=== PATIENT | male | born 1950 | race Two or more races ===

== ENCOUNTER 2016-10-01 11:04 | Emergency (ER) | payer MEDICAID, OTHER ==
[~2016-10-01] VITALS: Ht 167.6 cm; Wt 77.5 kg
[~2016-10-01 11:04] MED LIST: ALBU8.5H3 INH; AMLO-147 PO; CETI10CA PO; GUAI118L94 PO; HYDR12.58 PO; IBUP200C PO; LISI10TA2 PO; MECL25TA2 PO
[2016-10-01 11:46] VITALS: Ht 167.6 cm; Wt 77.5 kg
[2016-10-01] MEDS ORDERED: morphine 4 MG/ML VIAL IV STA (15:35)
[2016-10-01] MEDS ORDERED: ONDANSETRON 4 MG INJ IV STA (15:35)
[2016-10-01] MEDS ORDERED: SOD CHLORIDE 0.9% 1,000 ML IV STA (15:35)
[2016-10-01] MEDS ORDERED: HYD25 PO (15:56)
[2016-10-01] MEDS ORDERED: DEXAMETHASONE 10 MG/ML 1 ML INJ IV ONE (16:00)
[2016-10-01] MEDS ORDERED: CEFTRIAXONE 1 GM/50 ML (PMX) 50 ML IVPB ONE (16:00)
[2016-10-01] MEDS ORDERED: ACYCLOVIR 1,000 MG in SOD CHLORIDE 0.9% 100 ML IVPB ONE (16:00)
[2016-10-01] MEDS ORDERED: CIPROFLOXACIN 0.3% 2.5 ML OPH LEFT EYE ONE (16:00)
[2016-10-01] MEDS ORDERED: MUPIROCIN 2% 22 GM OINT TOP ONE (16:00)
[2016-10-01 16:19] LABS: ADD SCAN DIFF NO
[2016-10-01 16:22] LABS: BASOPHILS % 0.7 % (0.0-2.0); EOSINOPHILS % 0.4 % (0.0-7.0); HEMATOCRIT 53.4 % (42.0-52.0); HEMOGLOBIN 18.8 g/dl (14.0-18.0); LYMPHOCYTES # 1.4 10^3/ul (0.8-2.9); MEAN CORPUSCULAR HEMOGLOBIN 28.7 pg (29.0-33.0); MEAN CORPUSCULAR HGB CONC 35.2 g/dl (32.0-37.0); MEAN CORPUSCULAR VOLUME 81.4 fl (82.0-101.0); MEAN PLATELET VOLUME 8.8 fl (7.4-10.4); MONOCYTE # 0.6 10^3/ul (0.3-0.9); NEUTROPHIL # 2.5 10^3/ul (1.6-7.5); PLATELET COUNT 154 10^3/UL (140-415); RED BLOOD COUNT 6.56 10^6/ul (4.70-6.10); RED CELL DISTRIBUTION WIDTH 12.7 % (11.5-14.5); WHITE BLOOD COUNT 4.6 10^3/ul (4.8-10.8)
--- NOTE | 2016-10-01 16:25 | RADRPT ---
PROCEDURE: CT Brain without contrast. CLINICAL INDICATION: herpes ophthalmicus TECHNIQUE: A CT of the brain was performed utilizing axial imaging from the skull base through the vertex without IV contrast. Multiplanar reformatted images were made. Images were reviewed on a [email or web address] workstation. The CTDIvol is 45 mGy and the DLP is 720 mGycm. COMPARISON: None FINDINGS: There is no discrete extra-axial fluid collection or mass. The ventricles are of normal size, conto ur and configuration. There is minimal periventricular white matter disease in the left frontal and parietal lobes. There is no associated mass effect. No other intra-axial masses or regions of abn ormal attenuation are seen. There is no intracranial hemorrhage. Noted is left frontal and pre septal periorbital soft tissue swelling. There is normal aeration of the visualized paranasal sinuses. IMPRESSION: Mild white matter disease compatible with chronic small vessel ischemia. No intracranial hemorrhage , mass or infarct. Left frontal and pre septal periorbital soft tissue swelling. .Kb Norman MD, MD Date Time Electronically viewed and signed by .Kb Norman MD, MD on 10/01/2016 16:24 .A/
[2016-10-01 16:36] LABS: ADD UMIC YES; URINE BILIRUBIN (Dip) NEGATIVE (NEGATIVE); URINE BLOOD (Dip) TRACE (NEGATIVE); URINE COLOR LT. YELLOW (YELLOW); URINE GLUCOSE (Dip) NEGATIVE (NEGATIVE); URINE KETONES (Dip) NEGATIVE (NEGATIVE); URINE LEUKOCYTE ESTERASE (Dip) NEGATIVE (NEGATIVE); URINE NITRITE (Dip) NEGATIVE (NEGATIVE); URINE TOTAL PROTEIN (Dip) TRACE (NEGATIVE); URINE UROBILINOGEN (Dip) 0.2 E.U./dL (0.1-1.0)
--- NOTE | 2016-10-01 16:38 | ERA ---
ER Documentation Chief Complaint Date/Time DATE: 10/01/16 TIME: 16:35 Chief Complaint LT EYE PAIN AND UNILATERAL RASH SINCE SUNDAY HPI 66-year-old man presents with worsening rash to the left side of the face fluting his forehead and eyelids. He was seen and evaluated at [facility] about 3 days ago and states at that time the eyelids were not involved , he was evaluated and discharged with a prescription for valacyclovir which he states he has been using as prescribed. Since then the rash extended over to his left eyelids and has close his eyes shut. He developed a fever today. He has had no cough, no headache or neck stiffness, no chest pain or shortness of breath. Patient denies diabetes. Patient denies hearing loss or discharge from his ears. ROS All systems reviewed and are negative except as per history of present illness. Medications Home Meds Reported Medications Hydrochlorothiazide* (Hydrochlorothiazide*) 25 Mg Tab, 25 MG PO DAILY, #30 TAB 10/01/16 Discontinued Reported Medications Ibuprofen* (Ibuprofen*) Unknown Strength Capsule, PO QID Y for PAIN, CAP 08/18/15 Amlodipine Besylate* (Amlodipine Besylate*) Unknown Strength Tablet, PO DAILY, # 30 TAB 08/18/15 Discontinued Scripts Hydrochlorothiazide* (Hydrochlorothiazide*) 12.5 Mg Tablet, 12.5 MG PO DAILY, # 30 TAB Prov:DAMIAN FRAGOSO. TELE TECH 08/22/15 Lisinopril* (Lisinopril*) 10 Mg Tablet, 10 MG PO DAILY, #30 TAB Prov:DAMIAN FRAGOSO. TELE TECH 08/22/15 Meclizine Hcl* (Antivert*) 25 Mg Tablet, 25 MG PO Q6H Y for dizzy, #5 TAB Prov:DAMIAN FRAGOSO. TELE TECH 08/22/15 Cetirizine Hcl* (Zyrtec*) 10 Mg Capsule, 10 MG PO DAILY, #30 TAB Prov:GABRIEL FOSTER TELE TECH 08/19/15 Guaifenesin-Codeine Phosphate* (Guaifenesin* with Codeine Liq) 120 Ml Liquid, 5 ML PO Q4H for COUGH, #60 ML Prov:GABRIEL FOSTER TELE TECH 08/19/15 Albuterol Sulfate* (Proair HFA*) 8.5 Gm Hfa.aer.ad, 2 PUFF INH Q4H Y for WHEEZING AND SOB, #1 INHALER Prov:GABRIEL FOSTER NP 08/19/15 Allergies Allergies: Coded Allergies: No Known Allergy (Unverified , 10/01/16) PMhx/Soc Hypertension History of Surgery: No Anesthesia Reaction: No Hx Neurological Disorder: No Hx Respiratory Disorders: No Hx Cardiac Disorders: Yes (HTN) Hx Psychiatric Problems: No Hx Miscellaneous Medical Probl: No Hx Alcohol Use: No Hx Substance Use: No Hx Tobacco Use: No Smoking Status: Never smoker FmHx Family History: coronary disease, No diabetes Physical Exam Vitals Vital Signs Date Time Temp Pulse Resp B/P Pulse Ox O2 Delivery O2 Flow Rate FiO2 10/01/16 18:30 90 20 160/82 98 Room Air 10/01/16 11:46 100.3 88 20 201/91 98 Physical Exam GENERAL: Well-developed, well-nourished, febrile HEENT: Moist mucous membranes, diffuse papulovesicular rash to the left side of the upper face including the forehead and upper and lower left eyelids with skin induration and erythema. No cervical spine tenderness or deformity, no jaundice or icterus. Left eyelids are closed shut and I was unable to appreciate the cornea or pupil although the portion of the conjunctiva that I did visualized was injected and positive for chemosis. There is skin erythema and rash extending to the nose, although sparing the tip of the nose. There was no skin induration or erythema to the left EAC and tympanic membrane was without bulging or erythema. NEURO: Alert and oriented 3, able to speak and swallow without difficulty, sensation intact distally Strength 5/5 in upper and lower extremities bilaterally CARDIAC: Regular rate and rhythm, no murmurs rubs or gallops LUNGS: Clear bilaterally no wheezing crackles or stridor ABDOMEN: Soft nontender, no guarding, no rigidity, no rebound, no psoas sign no obturator sign. Normoactive bowel sounds SKIN: Warm and dry to touch, extensive erythematous papulovesicular rash to the left upper face involving first of vision of cranial nerve V, no oral lesions, no rash or erythema to the left auricle or within the left EAC EXTREMITIES: No clubbing cyanosis or edema, calves are bilaterally symmetrical, no Homans sign, no popliteal cord sign. Distal pulses equal and bilateral PSYCH: Normal affect without agitation or irritability Result Diagram: 10/01/16 1540 10/01/16 1540 Results 24 hrs Laboratory Tests Test 10/01/16 15:40 10/01/16 15:56 White Blood Count 4.610^3/ul Red Blood Count 6.5610^6/ul Hemoglobin 18.8g/dl Hematocrit 53.4% Mean Corpuscular Volume 81.4fl Mean Corpuscular Hemoglobin 28.7pg Mean Corpuscular Hemoglobin Concent 35.2g/dl Red Cell Distribution Width 12.7% Platelet Count 64594^3/UL Mean Platelet Volume 8.8fl Neutrophils % 54.0% Lymphocytes % 31.0% Monocytes % 13.0% Eosinophils % 0.4% Basophils % 0.7% Nucleated Red Blood Cells % 0.0/100WBC Neutrophils # 2.510^3/ul Lymphocytes # 1.410^3/ul Monocytes # 0.610^3/ul Eosinophils # 0.010^3/ul Basophils # 0.010^3/ul Nucleated Red Blood Cells # 0.010^3/ul Sodium Level 136mmol/L Potassium Level 3.8mmol/L Chloride Level 93mmol/L Carbon Dioxide Level 28mmol/L Anion Gap 19 Blood Urea Nitrogen 21mg/dl Creatinine 1.07mg/dl Glucose Level 137mg/dl Lactic Acid Level 2.3mmol/L Calcium Level 9.3mg/dl Total Bilirubin 1.1mg/dl Direct Bilirubin 0.00mg/dl Indirect Bilirubin 1.1mg/dl Aspartate Amino Transf (AST/SGOT) 37IU/L Alanine Aminotransferase (ALT/SGPT) 39IU/L Alkaline Phosphatase 76IU/L Total Protein 8.3g/dl Albumin 4.6g/dl Globulin 3.70g/dl Albumin/Globulin Ratio 1.24 Lipase 130U/L Urine Color LT. YELLOW Urine Clarity CLEAR Urine pH 6.0 Urine Specific [place] 1.020 Urine Ketones NEGATIVE Urine Nitrite NEGATIVE Urine Bilirubin NEGATIVE Urine Urobilinogen 0.2 E.U./dL Urine Leukocyte Esterase NEGATIVE Urine Microscopic RBC 0-2/HPF Urine Microscopic WBC 0-2/HPF Urine Bacteria OCCASIONAL Urine Hemoglobin TRACE Urine Glucose NEGATIVE% Urine Total Protein TRACE Current Medications Medications (Trade) Dose Ordered Sig/Fadumo Route PRN Reason Start Time Stop Time Status Last Admin Dose Admin Sodium Chloride (NS) 1,000 ml @ 1,000 mls/hr Q1H STAT IV 10/01/16 15:35 10/01/16 16:34 DC 10/01/16 16:07 Morphine Sulfate (morphine) 4 mg ONCE STAT IV 10/01/16 15:35 10/01/16 15:47 DC 10/01/16 16:06 Ondansetron HCl (Zofran Inj) 4 mg ONCE STAT IV 10/01/16 15:35 10/01/16 15:47 DC 10/01/16 16:06 Mupirocin 1 applic 1 applic ONCE ONCE TOP 10/01/16 16:00 10/01/16 16:01 DC 10/01/16 16:55 Ceftriaxone Sodium 50 ml @ 100 mls/hr ONCE ONCE IVPB 10/01/16 16:00 10/01/16 16:29 DC 10/01/16 16:07 Acyclovir/Sodium Chloride (Zovirax/NS) 100 ml @ 250 mls/hr ONCE ONCE IVPB 10/01/16 16:00 10/01/16 16:23 DC 10/01/16 16:55 Dexamethasone (Decadron) 10 mg ONCE ONCE IV 10/01/16 16:00 10/01/16 16:01 DC 10/01/16 16:06 Ciprofloxacin HCl 2 drop 2 drop ONCE ONCE LEFT EYE 10/01/16 16:00 10/01/16 16:01 DC 10/01/16 16:55 Vancomycin HCl (Vancocin) 250 ml @ 125 mls/hr ONCE IVPB 10/01/16 17:00 10/01/16 18:22 DC 10/01/16 17:37 Procedures/MDM IV line was established patient was placed on rn cardiac rehab rhythm strip revealed a sinus rhythm at about 80 bpm with upright P and T waves. Patient was febrile. Blood cultures were ordered results are pending I will follow-up. I do suspect bacterial superinfection of the skin of the left face which is secondary to herpes zoster outbreak to first division of the trigeminal nerve on the left face. I treated him here with 2 L normal saline intravenously, ibuprofen 600 mg p.o., dexamethasone 10 mg IV, ceftriaxone 1 g IV, and acyclovir 1 g IV. Patient also received morphine 4 mg IV and Zofran 4 mg IV for discomfort. Mupirocin antibiotic ointment was applied to the lesions of the left side of the face, and ciprofloxacin ophthalmic solution was administered to the left conjunctiva. I also administered vancomycin 1 g IV CBC revealed leukopenia 4.6 and polycythemia with a hemoglobin of 19, electrolytes revealed dehydration with a BUN/creatinine of 21/1, liver function tests were normal, lactic acid was elevated at 2.3. Chest X-ray 1V Interpreted by me: Soft Tissue: No acute abnormalities Bones: No acute abnormalities Mediastinum/Cardiac Silhouette/Lungs: No acute abnormalities CT scan of the brain was performed that was negative for acute bleed mass or shift, there was evidence of acute left preseptal cellulitis. Please refer to radiologist dictation for full report. Patient's tachycardia improved, pain improved and he has been treated here with IV antiviral and antibiotic therapy. Acute herpes zoster ophthalmicus can cause severe conjunctivitis and keratitis which is what I suspect this patient has and therefore he has at risk of losing his vision. I immediately set up transfer to a facility with active ophthalmology, and after speaking to transfer team he was accepted at [facility]. Critical Care: Time: 32 minutes, this was time separate from other procedures. Treatments/Evaluations: Close monitoring and treatment of unstable vital signs, cardiorespiratory, and neurologic status, while maintaining tight balance of fluid, respiratory, and cardiac interventions. Departure Diagnosis: Primary Impression: Herpes zoster ophthalmicus Additional Impressions: Preseptal cellulitis of left eye Facial cellulitis Shingles Qualified Code: B02.33 - Herpes zoster keratitis Condition: [place] Beck MD Oct 01, 2016 16:37
[2016-10-01 16:42] LABS: ALBUMIN 4.6 g/dl (3.3-4.9); POTASSIUM 3.8 mmol/L (3.5-5.1)
[2016-10-01 16:44] LABS: CREATININE 1.07 mg/dl (0.61-1.24)
[2016-10-01 16:45] LABS: ALBUMIN/GLOBULIN RATIO 1.24; BILIRUBIN,INDIRECT 1.1 mg/dl (0-1.1); BILIRUBIN,TOTAL 1.1 mg/dl (0.2-1.3); CALCIUM 9.3 mg/dl (8.4-10.2); TOTAL PROTEIN 8.3 g/dl (6.1-8.1)
[2016-10-01] MEDS ORDERED: VANCOMYCIN 1 GM (PMX) 250 ML IVPB SCH (17:00)
[2016-10-01 17:06] LABS: BACTERIA,URINE OCCASIONAL; URINE RBCS 0-2 /HPF (0)
--- NOTE | 2016-10-01 17:07 | RADRPT ---
PROCEDURE: XR Chest. CLINICAL INDICATION: Abdominal Pain TECHNIQUE: PA and Lateral views of the chest were obtained. COMPARISON: Chest x-ray 08/18/2015. FINDINGS: The soft tissues are normal. There are osteophytes in the thoracic spine. The heart, cardiomediast inal silhouette and hilar structures are normal. The pulmonary vasculature is normal. There are vasc ular calcifications in the aortic arch. The lungs are clear. The costophrenic angles are normal. Th ere is no evidence of pneumoperitoneum. Right apical pleural scarring is noted. IMPRESSION: 1. Spondylosis of the thoracic spine. 2. Stable chest x-ray with no evidence of active cardiopulmonary disease. RPTAT:AAJJ Physician Priya Date Time Electronically viewed and signed by Physician Priya on 10/01/2016 17:07 /
[2016-10-01 18:30] VITALS: BP 160/82; PULSE 90; RESP 20
[2016-10-03 22:54] LABS: VARICELLA-ZOSTER VIRUS AB IgM 0.24
[2016-10-04 10:33] LABS: HERPES SIMPLEX 1 DNA NOT DETECTED; HERPES SIMPLEX 2 DNA NOT DETECTED; HERPES SIMPLEX PCR SOURCE SERUM
[2016-10-04 23:29] LABS: VARICELLA-ZOSTER VIRUS AB IgG >4000.00 INDEX (<= 0.90)
== END 2016-10-01 18:30 | disposition short-term general hospital (02) ==
LOC: E/R 11:04
DX: B02.30 Zoster ocular disease, unspecified (principal); L03.211 Cellulitis of face; B02.33 Zoster keratitis; I10 Essential (primary) hypertension; R40.2252 Coma scale, best verbal response, oriented, at arrival to emergency department; R40.2142 Coma scale, eyes open, spontaneous, at arrival to emergency department; L03.213 Periorbital cellulitis; R40.2362 Coma scale, best motor response, obeys commands, at arrival to emergency department
CPT/HCPCS: 36415; 70450; 71010; 80053; 81001; 83605; 83690; 85025; 86694; 87040; 87529; 96374; 96375; J0133; J0696; J1100; J2270; J2405; J3370; J7030; Z7502; Z7610; 81003

== ENCOUNTER 2016-10-06 17:45 | Emergency (ER) | payer MEDICAID ==
[~2016-10-06] VITALS: Ht 157.5 cm; Wt 78.9 kg
[~2016-10-06 17:45] MED LIST changes: -ALBU8.5H3 INH; -AMLO-147 PO; -CETI10CA PO; -GUAI118L94 PO; +HYD25 PO; -HYDR12.58 PO; -IBUP200C PO; -LISI10TA2 PO; -MECL25TA2 PO
[2016-10-06 17:49] VITALS: Ht 157.5 cm; Wt 78.9 kg
[2016-10-06] MEDS ORDERED: ONDANSETRON (ODT) 4 MG TAB ODT STA (20:52)
[2016-10-06] MEDS ORDERED: HYDR-902 PO (20:54)
[2016-10-06] MEDS ORDERED: HYDROCODONE/APAP (10/325) TAB PO ONE (21:00)
[2016-10-06] MEDS ORDERED: BACI3.5O19 BOTH EYES (21:01)
[2016-10-06] MEDS ORDERED: PRD1OP5 BOTH EYES (21:02)
[2016-10-06] MEDS ORDERED: ACET-141 PO (21:03)
[2016-10-06] MEDS ORDERED: AMLO-147 PO (21:03)
[2016-10-06] MEDS ORDERED: CEPH500C PO (21:04)
[2016-10-06] MEDS ORDERED: ACYC800T57 PO (21:20)
[2016-10-06 21:36] VITALS: BP 155/84; PULSE 74; RESP 20
--- NOTE | 2016-10-06 22:07 | ERD ---
ER Documentation Chief Complaint Date/Time DATE: 10/06/16 TIME: 22:04 Chief Complaint has shingels on scalp thru left eye , has pain HPI Patient is a 66-year-old male with hypertension who presents with pain to the left base and left eye. He has herpes ophthalmicus and was seen at [facility] on September 28 and in the emergency department at [facility] on October 01. On the visit to [facility] he was transferred to [facility] for ophthalmology consultation. He was only given Tylenol for pain. He was supposedly given valacyclovir but the patient does not have that prescription here with him at this time and says "these are all my prescriptions". Currently he only has Keflex and Tylenol. Upon review of old medical records this the patient's fourth visit to the ER since 2015. He said that he does not have a primary doctor and he does not currently have the eye doctor either other than the fact that he saw the [facility] clinic a few days ago. ROS All systems reviewed and are negative except as per history of present illness. Medications Home Meds Active Scripts Acyclovir* (Zovirax*) 800 Mg Tablet, 800 MG PO 5 TIMES DAILY for 7 Days, TAB Prov:HÉCTOR FAYE MD 10/06/16 Hydrocodone/Acetaminophen ([place] 10-325 Tablet) 1 Each Tablet, 1 TAB PO Q6H Y for PAIN, #20 TAB Prov:HÉCTOR FAYE MD 10/06/16 Reported Medications Cephalexin* (Cephalexin*) 500 Mg Capsule, 500 MG PO Q6, #28 CAP 10/06/16 Acetaminophen* (Acetaminophen*) 500 MG Extra Strength Tablet, 500 MG PO Q4H Y for PAIN AND OR ELEVATED TEMP, TAB 10/06/16 Amlodipine Besylate* (Amlodipine Besylate*) 10 Mg Tablet, 10 MG PO DAILY, #30 TAB 10/06/16 Prednisolone Acetate* (Pred Forte*) 5 Ml Susp, 1 DROP BOTH EYES QID Y for Q7D, EA 10/06/16 Bacitracin-Polymyxin* (Bacitracin-Polymyxin* Eye Oint) 3.5 Gm Oint..gm., 1 APPLIC BOTH EYES Q7DAYS, TUB 10/06/16 Discontinued Reported Medications Hydrochlorothiazide* (Hydrochlorothiazide*) 25 Mg Tab, 25 MG PO DAILY, #30 TAB 10/01/16 Ibuprofen* (Ibuprofen*) Unknown Strength Capsule, PO QID Y for PAIN, CAP 08/18/15 Amlodipine Besylate* (Amlodipine Besylate*) Unknown Strength Tablet, PO DAILY, # 30 TAB 08/18/15 Discontinued Scripts Hydrochlorothiazide* (Hydrochlorothiazide*) 12.5 Mg Tablet, 12.5 MG PO DAILY, # 30 TAB Prov:DAMIAN FRAGOSO. HUMAN RESOURCES TALENT MANAGER 08/22/15 Lisinopril* (Lisinopril*) 10 Mg Tablet, 10 MG PO DAILY, #30 TAB Prov:DAMIAN FRAGOSO. HUMAN RESOURCES TALENT MANAGER 08/22/15 Meclizine Hcl* (Antivert*) 25 Mg Tablet, 25 MG PO Q6H Y for dizzy, #5 TAB Prov:DAMIAN FRAGOSO. HUMAN RESOURCES TALENT MANAGER 08/22/15 Cetirizine Hcl* (Zyrtec*) 10 Mg Capsule, 10 MG PO DAILY, #30 TAB Prov:GABRIEL FOSTER HUMAN RESOURCES TALENT MANAGER 08/19/15 Guaifenesin-Codeine Phosphate* (Guaifenesin* with Codeine Liq) 120 Ml Liquid, 5 ML PO Q4H for COUGH, #60 ML Prov:GABRIEL FOSTER HUMAN RESOURCES TALENT MANAGER 08/19/15 Albuterol Sulfate* (Proair HFA*) 8.5 Gm Hfa.aer.ad, 2 PUFF INH Q4H Y for WHEEZING AND SOB, #1 INHALER Prov:GABRIEL FOSTER HUMAN RESOURCES TALENT MANAGER 08/19/15 Allergies Allergies: Coded Allergies: No Known Allergy (Unverified , 10/06/16) PMhx/Soc History of Surgery: No Anesthesia Reaction: No Hx Neurological Disorder: No Hx Respiratory Disorders: No Hx Cardiac Disorders: Yes (HTN) Hx Psychiatric Problems: No Hx Miscellaneous Medical Probl: No Hx Alcohol Use: No Hx Substance Use: No Hx Tobacco Use: No Smoking Status: Never smoker FmHx Family History: No diabetes Physical Exam Vitals Vital Signs Date Time Temp Pulse Resp B/P Pulse Ox O2 Delivery O2 Flow Rate FiO2 10/06/16 21:36 74 20 155/84 100 Room Air 10/06/16 17:49 97.7 83 20 163/73 99 Physical Exam Const: Mild distress secondary to pain Head: Patient has obvious herpes zoster ophthalmicus to the left side of his face in the V1 distribution Eyes: Redness of the left eye with surrounding swelling ENT: Normal External Ears, Nose and Mouth. Neck: Full range of motion..~ No meningismus. Resp: Clear to auscultation bilaterally Cardio: Regular rate and rhythm, no murmurs Abd: Soft, non tender, non distended. Normal bowel sounds Skin: No petechiae or rashes Back: No midline or flank tenderness Ext: No cyanosis, or edema Neur: Awake and alert Psych: Normal Mood and Affect Results 24 hrs Current Medications Medications (Trade) Dose Ordered Sig/Fadumo Route PRN Reason Start Time Stop Time Status Last Admin Dose Admin Acetaminophen/ Hydrocodone Bitart (Rew (10/325)) 1 tab ONCE ONCE PO 10/06/16 21:00 10/06/16 21:01 DC 10/06/16 21:06 Ondansetron HCl (Zofran Odt) 4 mg ONCE STAT ODT 10/06/16 20:52 10/06/16 20:53 DC 10/06/16 21:06 Procedures/MDM Patient is a 66-year-old male who presents with acute herpes zoster ophthalmicus. The patient was complaining of pain and only had been given a prescription for Tylenol. I do believe that he will need something stronger like Rew and I will give him a prescription for Rew. He is Mateo been seen by ophthalmology but I will give him information for Dr. Bishop so that he can get a chore tender in the local area as well. The patient will be given a prescription for acyclovir for a one-week course as he does not currently have valacyclovir which she is supposed to be on. The patient can return for any worsening symptoms. I believe outpatient management is appropriate. Departure Diagnosis: Primary Impression: Herpes zoster ophthalmicus Additional Impression: Pain Condition: Fair Patient Instructions: Pain Management, Herpes Zoster Referrals: MICKY BISHOP MD Additional Instructions: SPECIALIST: YOU HAVE A MEDICAL CONDITION WHICH REQUIRES YOU TO SEE A SPECIALIST WITHIN THE NEXT 1-2 DAYS. PLEASE FOLLOW UP WITH YOUR PRIMARY PHYSICIAN FOR REFFERAL.IF YOU DO NOT HAVE A PRIMARY CARE PHYSICIAN AND/OR YOU CAN NOT AFFORD TO SEE A PHYSICIAN THE FOLLOWING RESOURCES HAVE BEEN SUPPLIED TO YOU. IT IS YOUR RESPONSIBILITY TO BE SEEN BY THE SPECIALIST HÉCTOR FAYE MD Oct 06, 2016 22:07
== END 2016-10-06 21:38 | disposition home or self-care (01) ==
LOC: E/R 17:45
DX: B02.30 Zoster ocular disease, unspecified (principal); H57.12 Ocular pain, left eye; I10 Essential (primary) hypertension
CPT/HCPCS: Z7610 ×2; 99284

== ENCOUNTER 2016-11-20 11:02 | Inpatient (IN) | payer MEDICAID ==
[2016-11-20] VITALS (9 sets, daily range): BP systolic 120–160; BP diastolic 48–77; PULSE 35–77; RESP 12–18; Ht 165.1 cm; Wt 74.4 kg
[~2016-11-20] VITALS: Ht 165.1 cm; Wt 74.4 kg
[~2016-11-20 11:02] MED LIST changes: +ACET-141 PO; +ACYC800T57 PO; +AMLO-147 PO; +BACI3.5O19 BOTH EYES; +CEPH500C PO; -HYD25 PO; +HYDR-902 PO; +PRD1OP5 BOTH EYES
--- NOTE | 2016-11-20 11:23 | ERA ---
ER Documentation Chief Complaint Date/Time DATE: 11/20/16 TIME: 11:23 Chief Complaint Dizziness HPI The patient is a 66-year-old male, presenting to the ER because of dizziness, losing balance, unable to walk, he feels as if his heart rate is slow for 1 day. He denies headache, neck pain, chest pain, dyspnea, abdominal pain, vomiting, dysuria, diarrhea. He was recently treated with acyclovir for shingles. He does not smoke or drink Past medical history: Hypertension Past surgical history: None ROS All systems reviewed and are negative except as per history of present illness. Medications Home Meds Active Scripts Acyclovir* (Zovirax*) 800 Mg Tablet, 800 MG PO 5 TIMES DAILY for 7 Days, TAB Prov:HÉCTOR FAYE MD 10/06/16 Hydrocodone/Acetaminophen ([place] 10-325 Tablet) 1 Each Tablet, 1 TAB PO Q6H Y for PAIN, #20 TAB Prov:HÉCTOR FAYE MD 10/06/16 Reported Medications Acetaminophen* (Acetaminophen*) 500 MG Extra Strength Tablet, 500 MG PO Q4H Y for PAIN AND OR ELEVATED TEMP, TAB 10/06/16 Amlodipine Besylate* (Amlodipine Besylate*) 10 Mg Tablet, 10 MG PO DAILY, #30 TAB 10/06/16 Prednisolone Acetate* (Pred Forte*) 5 Ml Susp, 1 DROP BOTH EYES QID Y for Q7D, EA 10/06/16 Discontinued Reported Medications Cephalexin* (Cephalexin*) 500 Mg Capsule, 500 MG PO Q6, #28 CAP 10/06/16 Bacitracin-Polymyxin* (Bacitracin-Polymyxin* Eye Oint) 3.5 Gm Oint..gm., 1 APPLIC BOTH EYES Q7DAYS, TUB 10/06/16 Allergies Allergies: Coded Allergies: No Known Allergy (Unverified , 10/06/16) PMhx/Soc History of Surgery: No Anesthesia Reaction: No Hx Neurological Disorder: No Hx Respiratory Disorders: No Hx Cardiac Disorders: Yes (HTN) Hx Psychiatric Problems: No Hx Miscellaneous Medical Probl: No Hx Alcohol Use: No Hx Substance Use: No Hx Tobacco Use: No Physical Exam Vitals Vital Signs Date Time Temp Pulse Resp B/P Pulse Ox O2 Delivery O2 Flow Rate FiO2 11/20/16 11:57 37 16 157/70 100 Nasal Cannula 2.0 11/20/16 11:36 Nasal Cannula 2 11/20/16 11:08 98.1 41 18 174/74 99 Physical Exam Const: No acute distress. Head: Atraumatic. Eyes: Normal Conjunctiva. ENT: Normal External Ears, Nose and Mouth. Neck: Full range of motion. No meningismus. Resp: Clear to auscultation bilaterally. Cardio: Bradycardic Abd: Soft, non distended, normal bowel sounds, non tender. Skin: No petechiae or rashes. Back: No midline or flank tenderness. Ext: No cyanosis, or edema. Neur: Awake and alert. No focal deficit Psych: Normal Mood and Affect. Result Diagram: 11/20/16 1134 11/20/16 1134 Results 24 hrs Laboratory Tests Test 11/20/16 11:34 White Blood Count 8.710^3/ul Red Blood Count 5.4210^6/ul Hemoglobin 15.7g/dl Hematocrit 44.2% Mean Corpuscular Volume 81.5fl Mean Corpuscular Hemoglobin 29.0pg Mean Corpuscular Hemoglobin Concent 35.5g/dl Red Cell Distribution Width 13.2% Platelet Count 34531^3/UL Mean Platelet Volume 8.6fl Neutrophils % 58.4% Lymphocytes % 29.8% Monocytes % 7.4% Eosinophils % 3.7% Basophils % 0.2% Nucleated Red Blood Cells % 0.0/100WBC Neutrophils # 5.110^3/ul Lymphocytes # 2.610^3/ul Monocytes # 0.710^3/ul Eosinophils # 0.310^3/ul Basophils # 0.010^3/ul Nucleated Red Blood Cells # 0.010^3/ul Prothrombin Time 12.5Sec Prothrombin Time Ratio 1.0 INR International Normalized Ratio 0.93 Activated Partial Thromboplast Time 26.9Sec Sodium Level 141mmol/L Potassium Level 4.7mmol/L Chloride Level 107mmol/L Carbon Dioxide Level 28mmol/L Anion Gap 11 Blood Urea Nitrogen 25mg/dl Creatinine 1.16mg/dl Glucose Level 101mg/dl Calcium Level 9.9mg/dl Magnesium Level 1.9mg/dl Troponin I 0.056ng/ml B-Type Natriuretic Peptide 879PG/ML [facility] EKG: Read by emergency physician Rate/Rhythm: Third-degree AV block 40 beats/min QRS, ST, T-waves: Incomplete right bundle branch block, lateral ST and T abnormality Impression: Abnormal EKG Radiologist chest x-ray reading is pending MEDICAL MAKING DECISION: The patient is a 66-year-old male, presenting with acute third-degree AV block, blood pressure is stable. The differential diagnoses considered include but are not limited to arrhythmia , sick sinus syndrome, electrolyte abnormality, medication, acute coronary syndrome, acute myocardial infarction, pericarditis, pulmonary embolism, aortic dissection, pneumonia, pleural effusion, pneumothorax, GERD, chest wall pain. Consultation: I discussed the patient with the special education bus driver Dr Leyva at 11:52 AM. He was made aware of the patient condition, the EKG finding, the pending labs. he accepted the consult Critical Care: Time: 35 minutes excluding all billable procedures. Treatments/Evaluations: Close monitoring and treatment of unstable vital signs, cardiorespiratory, and neurologic status, while maintaining tight balance of fluid, respiratory, and cardiac interventions. Departure Diagnosis: Primary Impression: Third degree AV block Condition: Critical Comments I discussed the findings with the patient. I discussed the patient with the on- call hospitalist Dr. Abdalla who was made aware of the lab, the treatment, the patient condition. The patient is admitted to ICU at 1235 pm THANH GRANT MD Nov 20, 2016 11:23
[2016-11-20 11:42] LABS: ADD SCAN DIFF NO
[2016-11-20 11:46] LABS: BASOPHILS % 0.2 % (0.0-2.0); EOSINOPHILS # 0.3 10^3/ul (0.0-0.5); EOSINOPHILS % 3.7 % (0.0-7.0); HEMATOCRIT 44.2 % (42.0-52.0); HEMOGLOBIN 15.7 g/dl (14.0-18.0); LYMPHOCYTES # 2.6 10^3/ul (0.8-2.9); LYMPHOCYTES % 29.8 % (15.0-51.0); MEAN CORPUSCULAR HGB CONC 35.5 g/dl (32.0-37.0); MEAN CORPUSCULAR VOLUME 81.5 fl (82.0-101.0); MEAN PLATELET VOLUME 8.6 fl (7.4-10.4); MONOCYTE # 0.7 10^3/ul (0.3-0.9); MONOCYTES % 7.4 % (0.0-11.0); NEUTROPHIL # 5.1 10^3/ul (1.6-7.5); NEUTROPHILS % 58.4 % (39.0-77.0); PLATELET COUNT 217 10^3/UL (140-415); RED BLOOD COUNT 5.42 10^6/ul (4.70-6.10); RED CELL DISTRIBUTION WIDTH 13.2 % (11.5-14.5); WHITE BLOOD COUNT 8.7 10^3/ul (4.8-10.8)
[2016-11-20 12:04] LABS: INR 0.93; PROTIME 12.5 Sec (12.2-14.2)
[2016-11-20 12:05] LABS: PARTIAL THROMBOPLASTIN TIME 26.9 Sec (25.0-35.0)
[2016-11-20 12:08] LABS: CALCIUM 9.9 mg/dl (8.4-10.2); CREATININE 1.16 mg/dl (0.61-1.24); MAGNESIUM 1.9 mg/dl (1.7-2.5); POTASSIUM 4.7 mmol/L (3.5-5.1)
[2016-11-20 12:20] LABS: TROPONIN-I 0.056 ng/ml (0.00-0.12)
--- NOTE | 2016-11-20 12:55 | RADRPT ---
PROCEDURE: XR Chest. CLINICAL INDICATION: Shortness of breath. TECHNIQUE: Single frontal view of the chest was obtained. COMPARISON: Chest x-ray 08/18/2015 10:58 p.m. FINDINGS: The soft tissues are normal . Monitoring electrodes are draped across the chest. There is a poor i nspiration.. There are degenerative osteophytes in the thoracic spine. The heart, cardiomediastina l silhouette and hilar structures are normal. The pulmonary vasculature is normal. There is a left- sided aorta. The lungs are clear. The costophrenic angles are normal. IMPRESSION: 1. There is no evidence of active cardiopulmonary disease. There is no change compared to August 18, 2015. RPTAT:AAJJ Physician Priya Date Time Electronically viewed and signed by Polo Alicia Physician on 11/20/2016 12:55 /
--- NOTE | 2016-11-20 13:29 | HP ---
Date/Time of Note Date/Time of Note DATE: 11/20/16 TIME: 13:29 Assessment/Plan VTE Prophylaxis VTE Prophylaxis Intervention: heparin Lines/Catheters IV Catheter Type (from [facility]): [facility] Assessment/Plan Assessment/Plan 66-year-old male who presents with dizziness managed as follows: 1. Third-degree heart block 2. Hypertension: suboptimal control 3. Recent diagnosis of shingles PLAN: * ICU admit/ avoid any further AV michelle blocking agents/ cardiology consultation obtained with Dr. Leyva * Patient will have pads placed prophylactically / ACS rule out / echo * Telemetry monitoring / Bed rest / supportive care Prophylaxis: SCDs / PPI HPI/ROS Admit Date/Time Admit Date/Time November 20, 2016 Hx of Present Illness Symptoms started a day [id number] male who presented to the emergency room today because of dizziness and inability to walk., symptoms started 8 days ago, and there has been no actual chest discomfort shortness of breath but patient does feel like he has been having a slow heartbeat. He was recently seen here on 28 January and at that time was diagnosed with shingles. He denies extremity swelling, he denies passing out episodes, he denies focal neurologic deficits. ROS 12 point review of system was done and pertinent findings as noted above PMH/Family/Social Past Medical History * Shingles Medical History: hypertension Family History Significant Family History: no pertinent family hx Social History Alcohol Use: none Smoking Status: Never smoker Drug Use: none Exam/Review of Systems Vital Signs Vitals VS - Last 72 Hours, by Label Date Time Temp Pulse Resp B/P Pulse Ox O2 Delivery O2 Flow Rate FiO2 11/20/16 12:51 37 17 166/57 100 Nasal Cannula 2.0 11/20/16 11:57 37 16 157/70 100 Nasal Cannula 2.0 11/20/16 11:36 Nasal Cannula 2 11/20/16 11:08 98.1 41 18 174/74 99 Vital Signs Date Time Temp Pulse Resp B/P Pulse Ox O2 Delivery O2 Flow Rate FiO2 11/20/16 12:51 37 17 166/57 100 Nasal Cannula 2.0 11/20/16 11:08 98.1 Exam Exam GENERAL: Patient is alert, oriented x 3, in no apparent distress; does not appear acutely or chronically ill. Patient is able to sit up unassisted.Patient makes good eye contact, is conversant, interactive, coherent. Patient appears calm and comfortable and is able to follow commands. HEENT: Oropharynx is clear. There is no carotid bruit, no masses. Patient's pupils are equal, round and reactive to light bilaterally. Extraocular motions are intact. There is no scleral icterus. There is no facial asymmetry. NECK: Supple. LUNGS: Clear to auscultation bilaterally with good air entry. No Wheezes or crackles. HEART: S1, S2. No murmur, gallops or rubs. Regular rate and rhythm. ABDOMEN: Soft, nontender. Normoactive bowel sounds. There are no stigmata of chronic liver disease. BACK: no costovertebral angle tenderness. GENITOURINARY: Deferred. EXTREMITIES: No edema. There is no cyanosis, clubbing. There are 2+ pulses bilaterally distally. NEUROLOGIC: The patient has no lateralizing signs. Cranial nerves II-XII are intact. SKIN: Otherwise, unremarkable. Labs Result Diagram: 11/20/16 1134 11/20/16 1134 Procedures Procedures Laboratory Tests Test 11/20/16 11:34 White Blood Count 8.710^3/ul Red Blood Count 5.4210^6/ul Hemoglobin 15.7g/dl Hematocrit 44.2% Mean Corpuscular Volume 81.5fl Mean Corpuscular Hemoglobin 29.0pg Mean Corpuscular Hemoglobin Concent 35.5g/dl Red Cell Distribution Width 13.2% Platelet Count 98861^3/UL Mean Platelet Volume 8.6fl Neutrophils % 58.4% Lymphocytes % 29.8% Monocytes % 7.4% Eosinophils % 3.7% Basophils % 0.2% Nucleated Red Blood Cells % 0.0/100WBC Neutrophils # 5.110^3/ul Lymphocytes # 2.610^3/ul Monocytes # 0.710^3/ul Eosinophils # 0.310^3/ul Basophils # 0.010^3/ul Nucleated Red Blood Cells # 0.010^3/ul Prothrombin Time 12.5Sec Prothrombin Time Ratio 1.0 INR International Normalized Ratio 0.93 Activated Partial Thromboplast Time 26.9Sec Sodium Level 141mmol/L Potassium Level 4.7mmol/L Chloride Level 107mmol/L Carbon Dioxide Level 28mmol/L Anion Gap 11 Blood Urea Nitrogen 25mg/dl Creatinine 1.16mg/dl Glucose Level 101mg/dl Calcium Level 9.9mg/dl Magnesium Level 1.9mg/dl Troponin I 0.056ng/ml B-Type Natriuretic Peptide 879PG/ML PROCEDURE: XR Chest. CLINICAL INDICATION: Shortness of breath. TECHNIQUE: Single frontal view of the chest was obtained. COMPARISON: Chest x-ray 08/18/2015 10:58 p.m. FINDINGS: The soft tissues are normal . Monitoring electrodes are draped across the chest. There is a poor inspiration.. There are degenerative osteophytes in the thoracic spine. The heart, cardiomediastinal silhouette and hilar structures are normal. The pulmonary vasculature is normal. There is a left- sided aorta. The lungs are clear. The costophrenic angles are normal. IMPRESSION: 1. There is no evidence of active cardiopulmonary disease. There is no change compared to August 18, 2015. RPTAT:AAJJ Physician Priya Date Time Electronically viewed and signed by Polo Alicia Physician on 11/20/2016 12:55 JM/ CC: THANH GRANT MD I reviewed EKG: Third-degree heart block RYANVERITOJerry MarieEver LeeNov 20, 2016 13:29
[2016-11-20 15:41] LABS: BARBITURATES Negative (NEGATIVE); BENZODIAZEPINES Negative (NEGATIVE); CANNABINOIDS Negative (NEGATIVE); COCAINE Negative (NEGATIVE); OPIATES Negative (NEGATIVE)
--- NOTE | 2016-11-20 16:07 | RADRPT ---
Echocardiogram Report Patient Name: NEELIMA MATA Gender: Male Date: 1950 Study Date: 20-Nov-2016 Principal Strategist: Jani [facility] Location: [facility] Ref. Physician: CARLYLE DAVIS Quality: Adequate Procedures: Transthoracic echocardiogram with complete 2D, M-Mode, and doppler examination. Indications: 3rd degree heart block. 2D/M Mode Doppler Measurement Value Normal Ranges Measurement Value Normal Ranges LVIDd 2D 3.7 3.5 - 5.6 cm AV Peak Robert 1.4 m/sec LVIDs 2D 2.6 2.1 - 4.1 cm AV Peak PG 8.0 mmHg LVPWd 2D 1.2 0.6 - 1.1 cm AI Peak PG 16.9 mmHg IVSd 2D 1.2 0.6 - 1.1 cm AI Peak Robert 2.1 m/sec AoR Diam 2D 3.0 2.0 - 3.7 cm AI PHT 1689.2 msec EDV 2D 58.2 cm3 LVOT Peak Robert 1.1 m/sec ESV 2D 16.7 cm3 LVOT Peak PG 5.0 mmHg LA Dimen 2D 3.4 2.3 - 4.0 cm MV E Peak Robert 0.8 m/sec MV A Peak Robert 1.1 m/sec MV E/A 0.7 MV Decel Time 294 msec MV Decel Walker 3 MV E/A 0.7 Findings Left Ventricle: Hyperdynamic left ventricular systolic function. Normal left ventricular cavity size. Left ventricular wall thickness upper limits of normal. Ejection fraction is visually estimated at 65 %. Tissue Doppler/Mitral Doppler indices are consistent with impaired relaxation (Stage I diastolic dysfunction). Right Ventricle: Normal right ventricular size. Normal right ventricular systolic function. Left Atrium: The left atrium is normal in size. Right Atrium: The right atrium is normal in size. Mitral Valve: Mild mitral leaflet calcification. Trace mitral regurgitation. Aortic Valve: Aortic valve not well visualized. Mild aortic valve regurgitation. Tricuspid Valve: Normal appearance and function of the tricuspid valve with trace physiologic regurgitation. Unable to obtain RVSP due to minimal presence of tricuspid regurgitation. Pericardium: Normal pericardium with no significant pericardial effusion. Aorta: Normal aortic root. IVC: Normal size and normal respiratory collapse consistent with normal right atrial pressure. Conclusions 1.Hyperdynamic left ventricular systolic function. Normal left ventricular cavity size. Left ventricular wall thickness upper limits of normal. Ejection fraction is visually estimated at 65 %. Tissue Doppler/Mitral Doppler indices are consistent with impaired relaxation (Stage I diastolic dysfunction). 2.Mild mitral leaflet calcification. Trace mitral regurgitation. 3.Aortic valve not well visualized. Mild aortic valve regurgitation. 4.Normal appearance and function of the tricuspid valve with trace physiologic regurgitation. Unable to obtain RVSP due to minimal presence of tricuspid regurgitation. Electronically Signed By: Yair Leyva 20-Nov-2016 16:06:31 -0700 Patient Name: NEELIMA MATA Study Date: 20-Nov-2016 [id number]
[2016-11-20 16:46] LABS: ALBUMIN 4.9 g/dl (3.3-4.9); ALBUMIN/GLOBULIN RATIO 1.53; BILIRUBIN,INDIRECT 1.2 mg/dl (0-1.1); BILIRUBIN,TOTAL 1.2 mg/dl (0.2-1.3); CALCIUM 10.1 mg/dl (8.4-10.2); CREATININE 1.01 mg/dl (0.61-1.24); MAGNESIUM 2.1 mg/dl (1.7-2.5); POTASSIUM 4.5 mmol/L (3.5-5.1); TOTAL PROTEIN 8.1 g/dl (6.1-8.1)
[2016-11-20 16:58] LABS: TROPONIN-I 0.065 ng/ml (0.00-0.12)
[2016-11-20 17:03] LABS: CK-MB 2.24 ng/ml (0.0-2.4)
[2016-11-20 17:16] LABS: THYROID STIMULATING HORMONE 0.336 MIU/L (0.465-4.680)
--- NOTE | 2016-11-20 17:21 | PN ---
DATE: 11/20/2016 REASON FOR CONSULT: Complete heart block. CHIEF COMPLAINT: Weakness, shortness of breath, lightheadedness. HISTORY OF PRESENT ILLNESS: Thank you for this referral. History obtained from the patient, ofe jarvis with Dr. Grant, review of the old chart and discussion with the staff. This 66-year-old gentlem an with history of left bundle branch block on his EKG per review of the old chart. He came to [facility] room because of dizziness and lightheadedness. The patient verbalized limited activity, he ge ts short of breath and dizzy. No dustin syncope but he felt lightheaded. Symptoms started and actua lly gotten worse from yesterday. The patient has been diagnosed with shingles and he was started on medication for it 3 weeks ago. He stated he felt like the medication was "too strong" for him and it was what shingles medication cost him, although he has had any ____yesterday. PAST MEDICAL HISTORY: Hypertension. Shingles was diagnosed in 01/28/2017 around the face. Review of the old chart showed that the patient has had a chronic left bundle branch block as per old chart including in 2014 EKG which was in the computer was reviewed. MEDICATIONS AT HOME: As per medication reconciliation, personally reviewed. He is not on any beta damaris. He takes Norvasc was blood pressure. FAMILY HISTORY: No reported coronary artery disease. SOCIAL HISTORY: The patient does not smoke or drink. ALLERGIES: NO REPORTED ALLERGIES. PHYSICAL EXAMINATION: VITAL SIGNS: Temperature 98.1, heart rate of 38, blood pressure 150/55, respiration rate of 30, sat urating 100%. HEENT: Normocephalic, atraumatic. No acute distress. CARDIOVASCULAR: Bradycardia. PULMONARY: Anteriorly with no wheezes or rhonchi. GASTROINTESTINAL: Soft, nontender. EXTREMITIES: No significant edema. NEUROLOGIC: Awake, responds appropriately. PSYCHIATRIC: Calm, pleasant. DIAGNOSTIC DATA: WBC 8.7, hemoglobin 15.8, platelet of 217. Urine tox was negative. Sodium 141, p otassium 4.7, BUN of 25, creatinine 1.16, glucose 101, ____879. Chest x-ray shows no acute cardiopu lmonary disease. Echocardiogram was also personally reviewed, which showed normal LV size and systo lic function. EKG was personally reviewed, which showed normal sinus rhythm with complete heart blo ck. Review of the old chart showed the patient has had left bundle branch block previously. RECOMMENDATIONS: 1. Symptomatic complete heart block 2. History of hypertension. 3. History of abnormal EKG with left bundle branch. 4. Dizziness, no lightheadedness secondary to above. 5. Moderate renal insufficiency. 6. Shingles on the face. RECOMMENDATIONS: We will hold off on any blood pressure medications. The patient was admitted to [facility] for close monitoring. I will place a temporary pacemaker for now as soon as the general labor forklift operator is [facility]. Echocardiogram was obtained. Thyroid function tests will be checked. Cardiac enzymes will be repeated. Electrolytes will be repleted. If there is no evidence of any reversible causes, we w ill place a permanent pacemaker in him. Risks and alternatives of the operative procedure have been discussed with the patient. The patient consented to procedure. For now was admitted to the ICU. More than 40 minutes of critical care time was spent in management of this patient excluding any pro cedures. Dictated By: RAMONA NARAYANAN MD AV/NTS Conf#: [id number] DID#: [id number] CC: CARLYLE DAVIS MD; THANH GRANT MD;*End*
[2016-11-20] MEDS ORDERED: MIDAZOLAM 1 MG/ML 2 ML INJ ONE (19:16)
--- NOTE | 2016-11-20 20:02 | SP ---
DATE OF PROCEDURE: 11/20/2016 PROCEDURE PERFORMED: 1. Fluoroscopic-guided temporary pacemaker placement through the right femoral vein approach. 2. Moderate sedation for 15 minutes. SURGEON: Ramona Leyva MD CLINICAL INDICATIONS: Complete heart block and bradycardia. DESCRIPTION OF PROCEDURE: Written informed consent was obtained after ____ the patient was brought into the laborer cement gun placing ____ sterile fashion. Right groin area was anesthetized with 1% lidocaine. Using modified Seldinger technique ____. A temporary pacemaker was advanced under fluoroscopy into the r ight ventricular apex. Threshold was checked and was still pacing at 1 milliamp. It was set at yajaira kup rate of 30 with 10 MA for the backup heart rate. The patient tolerated without complication. S marley was sutured into place and secured. Dictated By: RAMONA LEYVA MD AV/LORENA Conf#: [id number] DID#: [id number] CC: CARLYLE DAVIS MD;*EndCC*
[2016-11-20] MEDS ORDERED: DOPamine-D5W 1.6 MG/ML 250 ML IV SCH (20:30)
[2016-11-20] MEDS: DOCUSATE SODIUM 100 MG CAP PO SCH (21:00)
[2016-11-20] MEDS: DEXTROSE 5%-0.9% NACL 1,000 ML IV SCH (21:05)
[2016-11-20 21:26] LABS: CK-MB 1.32 ng/ml (0.0-2.4); TROPONIN-I 0.057 ng/ml (0.00-0.12)
[2016-11-20] MEDS: CEFAZOLIN 1 GM/50 ML (PMX) 50 ML IVPB SCH (23:21)
[2016-11-21] VITALS (35 sets, daily range): BP systolic 107–163; BP diastolic 39–133; PULSE 36–79; RESP 9–19
[2016-11-21 00:31] LABS: TROPONIN-I 0.056 ng/ml (0.00-0.12)
[2016-11-21 00:50] LABS: CK-MB 1.46 ng/ml (0.0-2.4)
[2016-11-21] MEDS: CEFAZOLIN 1 GM/50 ML (PMX) 50 ML IVPB SCH ×3 (05:51→21:39)
[2016-11-21] MEDS: PANTOPRAZOLE (EC) 40 MG TAB PO SCH (05:51)
[2016-11-21] MEDS: DEXTROSE 5%-0.9% NACL 1,000 ML IV SCH ×3 (05:51→19:34)
[2016-11-21 06:41] LABS: ADD SCAN DIFF NO
[2016-11-21 06:54] LABS: BASOPHILS % 0.1 % (0.0-2.0); EOSINOPHILS # 0.5 10^3/ul (0.0-0.5); EOSINOPHILS % 6.5 % (0.0-7.0); HEMATOCRIT 43.3 % (42.0-52.0); HEMOGLOBIN 15.8 g/dl (14.0-18.0); LYMPHOCYTES # 2.7 10^3/ul (0.8-2.9); LYMPHOCYTES % 35.5 % (15.0-51.0); MEAN CORPUSCULAR HEMOGLOBIN 29.5 pg (29.0-33.0); MEAN CORPUSCULAR HGB CONC 36.5 g/dl (32.0-37.0); MEAN CORPUSCULAR VOLUME 80.9 fl (82.0-101.0); MEAN PLATELET VOLUME 8.6 fl (7.4-10.4); MONOCYTE # 0.5 10^3/ul (0.3-0.9); MONOCYTES % 7.1 % (0.0-11.0); NEUTROPHIL # 3.9 10^3/ul (1.6-7.5); NEUTROPHILS % 50.5 % (39.0-77.0); PLATELET COUNT 201 10^3/UL (140-415); RED BLOOD COUNT 5.35 10^6/ul (4.70-6.10); RED CELL DISTRIBUTION WIDTH 13.2 % (11.5-14.5); WHITE BLOOD COUNT 7.6 10^3/ul (4.8-10.8)
[2016-11-21 07:17] LABS: CHOL/HDL RATIO 5.1 RATIO
[2016-11-21 07:22] LABS: ALBUMIN 4.2 g/dl (3.3-4.9); ALBUMIN/GLOBULIN RATIO 1.75; BILIRUBIN,INDIRECT 0.9 mg/dl (0-1.1); BILIRUBIN,TOTAL 0.9 mg/dl (0.2-1.3); CREATININE 0.96 mg/dl (0.61-1.24); MAGNESIUM 1.9 mg/dl (1.7-2.5); POTASSIUM 3.8 mmol/L (3.5-5.1); TOTAL PROTEIN 6.6 g/dl (6.1-8.1)
[2016-11-21 07:24] LABS: PARTIAL THROMBOPLASTIN TIME 25.2 Sec (25.0-35.0); PROTIME 13.2 Sec (12.2-14.2)
[2016-11-21 07:28] LABS: TROPONIN-I 0.052 ng/ml (0.00-0.12)
[2016-11-21 07:30] LABS: CK-MB 1.05 ng/ml (0.0-2.4)
[2016-11-21 08:21] LABS: THYROID STIMULATING HORMONE 0.113 MIU/L (0.465-4.680)
[2016-11-21] MEDS ORDERED: morphine 2 MG INJ IV PRN ×2 (08:30→16:00)
[2016-11-21] MEDS: ASPIRIN (EC) 81 MG TAB PO SCH (08:48)
[2016-11-21] MEDS: DOCUSATE SODIUM 100 MG CAP PO SCH ×2 (08:48→21:38)
--- NOTE | 2016-11-21 10:24 | PN ---
Date/Time of Note Date/Time of Note DATE: 11/21/16 TIME: 10:18 Assessment/Plan VTE Prophylaxis VTE Prophylaxis Intervention: SCD's Lines/Catheters IV [facility]from [facility] Peripheral IV Urinary Cath still in place: No Assessment/Plan Chief Complaint/Hosp Course Assessment and plan.: 1. Symptomatic complete heart block Cardiology has been consulted, 2D echocardiogram result reviewed Plan for pacemaker placement today 2. History of hypertension. Stable, at this time we will hold blood pressure medication secondary to bradycardia and heart block 3. History of abnormal EKG with left bundle branch. Cardiology has been consulted 4. Dizziness, no lightheadedness secondary to above. 5. Moderate renal insufficiency. Continue IV fluid, follow renal panel in a.m. 6. Shingles on the face. Status post therapy and previous hospitalization, continue to monitor 7. Abnormal thyroid panel. TSH found to be 0.113 within normal free T4 Obtain endocrinology consult Continue to monitor in ICU. We will continue monitor patient closely for recommendation management treatment as clinical course Problems: Subjective 24 Hr Interval Summary Free Text/Dictation Patient denies of any chest pain or shortness of breath Denies of any dizziness or lightheadedness Heart rate ranges between 30-38 Exam/Review of Systems Vital Signs Vitals Vital Signs Date Time Temp Pulse Resp B/P Pulse Ox O2 Delivery O2 Flow Rate FiO2 11/21/16 10:07 100 2.0 11/21/16 06:30 37 9 143/57 11/21/16 06:00 Nasal Cannula 11/21/16 04:00 98.5 Intake and Output 11/20/16 11/20/16 11/21/16 15:00 23:00 07:00 Intake Total 382.95 ml 1054.46 ml Output Total 600 ml 900 ml 350 ml Balance -600 ml -517.05 ml 704.46 ml Exam General: The patient is well-developed, Not in acute distress. HEENT: Atraumatic, normocephalic. The pupils are equal and round . Neck: Supple with full range of motion. Chest: Normal , external pacer in place Lungs: Clear to auscultation bilaterally Heart: Normal S1-S2, bradycardic Abdomen: Soft , nontender, nondistended , bowel sounds are present. Extremities: Normal to inspection, no edema no cyanosis Neurologic: Normal mental status,The patient is awake, alert and oriented . Results Result Diagram: 11/21/16 0533 11/21/16 0553 Results 24 hrs Laboratory Tests Test 11/20/16 11:34 11/20/16 14:08 11/20/16 16:15 11/20/16 20:26 White Blood Count 8.7 # Red Blood Count 5.42 Hemoglobin 15.7 Hematocrit 44.2 Mean Corpuscular Volume 81.5 L Mean Corpuscular Hemoglobin 29.0 Mean Corpuscular Hemoglobin Concent 35.5 Red Cell Distribution Width 13.2 Platelet Count 217 # Mean Platelet Volume 8.6 Neutrophils % 58.4 Lymphocytes % 29.8 Monocytes % 7.4 Eosinophils % 3.7 Basophils % 0.2 Nucleated Red Blood Cells % 0.0 Neutrophils # 5.1 Lymphocytes # 2.6 Monocytes # 0.7 Eosinophils # 0.3 Basophils # 0.0 Nucleated Red Blood Cells # 0.0 Prothrombin Time 12.5 Prothrombin Time Ratio 1.0 INR International Normalized Ratio 0.93 Activated Partial Thromboplast Time 26.9 Sodium Level 141 144 Potassium Level 4.7 4.5 Chloride Level 107 106 Carbon Dioxide Level 28 29 Anion Gap 11 14 Blood Urea Nitrogen 25 H 22 H Creatinine 1.16 1.01 Glucose Level 101 103 Calcium Level 9.9 10.1 Magnesium Level 1.9 2.1 Troponin I 0.056 0.065 0.057 B-Type Natriuretic Peptide 879 H Urine Opiates Screen Negative Urine Barbiturates Negative Urine Amphetamines Screen Negative Urine Benzodiazepines Screen Negative Urine Cocaine Screen Negative Urine Cannabinoids Negative Total Bilirubin 1.2 Direct Bilirubin 0.00 Indirect Bilirubin 1.2 H Aspartate Amino Transf (AST/SGOT) 47 H Alanine Aminotransferase (ALT/SGPT) 62 Alkaline Phosphatase 74 Creatine Kinase 91 77 Creatine Kinase Index 2.5 1.7 Creatinine Kinase MB (Mass) 2.24 1.32 Total Protein 8.1 Albumin 4.9 Globulin 3.20 Albumin/Globulin Ratio 1.53 Thyroid Stimulating Hormone (TSH) 0.336 L Free Thyroxine 1.14 Digoxin Level < 0.4 L Test 11/20/16 23:51 11/21/16 05:33 11/21/16 05:53 11/21/16 05:55 Creatine Kinase 65 64 Creatine Kinase Index 2.2 1.6 Creatinine Kinase MB (Mass) 1.46 1.05 Troponin I 0.056 0.052 White Blood Count 7.6 Red Blood Count 5.35 Hemoglobin 15.8 Hematocrit 43.3 Mean Corpuscular Volume 80.9 L Mean Corpuscular Hemoglobin 29.5 Mean Corpuscular Hemoglobin Concent 36.5 Red Cell Distribution Width 13.2 Platelet Count 201 Mean Platelet Volume 8.6 Neutrophils % 50.5 Lymphocytes % 35.5 Monocytes % 7.1 Eosinophils % 6.5 Basophils % 0.1 Nucleated Red Blood Cells % 0.0 Neutrophils # 3.9 Lymphocytes # 2.7 Monocytes # 0.5 Eosinophils # 0.5 Basophils # 0.0 Nucleated Red Blood Cells # 0.0 Prothrombin Time 13.2 Prothrombin Time Ratio 1.0 INR International Normalized Ratio 1.00 Activated Partial Thromboplast Time 25.2 Sodium Level 143 Potassium Level 3.8 Chloride Level 110 Carbon Dioxide Level 27 Anion Gap 10 Blood Urea Nitrogen 21 H Creatinine 0.96 Glucose Level 119 Hemoglobin A1c 5.6 Calcium Level 9.0 Magnesium Level 1.9 Total Bilirubin 0.9 Direct Bilirubin 0.00 Indirect Bilirubin 0.9 Aspartate Amino Transf (AST/SGOT) 34 Alanine Aminotransferase (ALT/SGPT) 59 Alkaline Phosphatase 53 Total Protein 6.6 # Albumin 4.2 Globulin 2.40 Albumin/Globulin Ratio 1.75 Triglycerides Level 302 H Cholesterol Level 175 LDL Cholesterol, Calculated 81 HDL Cholesterol 34 Cholesterol/HDL Ratio 5.1 Thyroid Stimulating Hormone (TSH) 0.113 L Medications Medications Current Medications Acetaminophen/ Hydrocodone Bitart ([place] (10/325)) 1 tab Q6H PRN PO PAIN; Start 11/20/16 at 14:00 Aspirin (Halfprin) 81 mg DAILY PO ; Start 11/21/16 at 09:00 Pantoprazole (Protonix Tab) 40 mg DAILY@06 PO ; Start 11/21/16 at 06:00 Docusate Sodium (Colace) 100 mg BID PO ; Start 11/20/16 at 21:00 Hydralazine HCl 10 mg 10 mg Q6H PRN IV sbp > 170mmhg; Start 11/20/16 at 14:00 Cefazolin Sodium 50 ml @ 100 mls/hr Q8 IVPB Last administered on 11/21/16t 05: 51; Admin Dose 100 MLS/HR; Start 11/20/16 at 22:00 Dextrose/Sodium Chloride 1,000 ml @ 125 mls/hr Q8H IV Last administered on 05:51; Admin Dose 125 MLS/HR; Start 11/20/16 at 19:30 Dopamine HCl/ Dextrose 250 ml @ 5.58 mls/hr TITRATE IV Last administered on 21:09; Admin Dose 13.95 MLS/HR; Start 11/20/16 at 20:30 Morphine Sulfate (morphine) 2 mg Q4H PRN IV PAIN Last administered on 08:49; Admin Dose 2 MG; Start 11/21/16 at 08:30 YULI PENDLETON MD Nov 21, 2016 10:24
--- NOTE | 2016-11-21 12:54 | PN ---
DATE: 11/21/2016 CARDIOLOGY FOLLOWUP PROGRESS NOTE AND CRITICAL CARE NOTE SUBJECTIVE: The patient remains in complete heart block with no improvement. Heart rate has remain ed stable around 30s though. The pacemaker has not been needed to be pacing so far. He is placed a lso on dopamine to higher doses. He was symptomatic. He was cut down to ____ and tolerated it. Bl ood pressure has remained stable. Denies any chest pain or pressure. Has back pain from lying down . No groin pain. MEDICATIONS: Reviewed. Discussed with the staff extensively. PHYSICAL EXAMINATION: VITAL SIGNS: Temperature 97.4, heart rate of 37, blood pressure of 138/66, respiratory rate of 13, saturating 100%. HEENT: Normocephalic, atraumatic. No acute distress. CARDIOVASCULAR: Bradycardic. PULMONARY: Anteriorly with no wheezes. GASTROINTESTINAL: Soft, nontender. EXTREMITIES: With no significant edema. VASCULAR: Right femoral vein with ____ temporary pacemaker in place, no acute bleeding. NEUROLOGIC: Awake and alert. PSYCHIATRIC: Appears to be calm, pleasant. LABORATORY: WBC of 7.6, hemoglobin 15.8, platelets of 201. Sodium of 148, potassium 3.8, BUN of 21 , creatinine 0.96, glucose of 119. Troponin has been negative x3. Free T4 is 1.14. TSH was 0.336 and 0.113. Echocardiogram was personally reviewed and shows ejection fraction of about 65%. Grade I diastolic dysfunction. ASSESSMENT AND PLAN: 1. Complete heart block. 2. ____ bradycardia secondary to above. 3. Hypertension, currently under control. 4. Recent diagnosis of shingles. RECOMMENDATIONS: We will continue with dopamine drip for now. Temporary pacemaker as a backup. Co ntinue with the ICU care. Plan for permanent pacemaker today as soon as the organic lab worker is available. Risks and benefits have been discussed with the patient in detail. Risk of infection, vascular com plication, bleeding complication, perforation, anesthesia complications, MS, stroke, , renal fa ilure, etc., discussed with the patient. The patient consented to procedure. We will plan for the procedure for today. For now, we will continue with the ICU care. More than 38 minutes of critical care time was spent in management of this patient excluding any pro cedures. Dictated By: RAMONA CROSS/LORENA Conf#: [id number] [facility]#: [id number]
--- NOTE | 2016-11-21 13:14 | CONS ---
Date/Time of Note Date/Time of Note DATE: 11/21/16 TIME: 13:09 Assessment/Plan Assessment/Plan Problems: (1) Abnormal thyroid function test Status: Acute Comment: He had had a borderline suppressed TSH roughly a year ago when he came to the fast track department. The overall picture looks like a euthyroid sick syndrome but is actually also possible that he could have a low-grade subclinical hyperthyroidism. This would not account for a cardiac bradycardia dysrhythmia or complete heart block. In other was a thyroid finding is an incidental finding to the primary and chief complaint. Nuclear medicine thyroid uptake and scan will be consideration versus a thyroid ultrasound to determine if there is a multinodular thyroid gland. Given that the cardiac issues take absolute priority over this all go ahead and order a routine thyroid ultrasound. If it is all possible to avoid IV iodine contrast please avoid this. However if you need to give the iodine contrast I will only postpone my work not obviates my work. Consultation Date/Type/Reason Admit Date/Time November 20, 2016 Date of Consultation: Nov 21, 2016 Type of Consultation: Endocrinology Reason for Consultation Suppressed TSH with normal free T4 Referring Provider: YULI PENDLETON MD Hx of Present Illness Previously healthy 66-year-old gentleman admitted with complete heart block. He has no known prior history of thyroid disease and has not been on any type of thyroid medications. He has no exposure to radiation to the neck or thyroid bed there is no family history of thyroid malignancy. There is no history of thyroid nodules. His endocrine review of systems is unremarkable. Constitutional: no complaints (Denies fevers chills or sweats) Eyes: no complaints (Denies diplopia or exophthalmos) Respiratory: no complaints Cardiovascular: palpitations (Recent palpitations) Gastrointestinal: no complaints Genitourinary: no complaints Additional Comments No weight loss Past Medical History Medical History: hypertension Past Surgical History Past Surgical Hx: no surgical history Family History Significant Family History: no pertinent family hx Social History Alcohol Use: none Smoking Status: Never smoker Drug Use: none Exam/Review of Systems Vital Signs Vitals Vital Signs Date Time Temp Pulse Resp B/P Pulse Ox O2 Delivery O2 Flow Rate FiO2 11/21/16 12:00 37 11/21/16 11:30 13 138/56 100 11/21/16 11:00 Nasal Cannula 11/21/16 10:07 2.0 11/21/16 08:00 97.4 Intake and Output 11/20/16 11/20/16 11/21/16 15:00 23:00 07:00 Intake Total 382.95 ml 1054.46 ml Output Total 600 ml 900 ml 350 ml Balance -600 ml -517.05 ml 704.46 ml Exam Constitutional: alert, oriented Neck: non-tender, other (Thyroid is normal in size and shape without nodularity ), supple Respiratory: clear to auscultation, normal air movement Cardiovascular: nl pulses, regular rate and rhythm Gastrointestinal: nl liver, spleen, non-tender, soft Results Result Diagram: 11/21/16 0533 11/21/16 0553 Results 24 hrs Laboratory Tests Test 11/20/16 14:08 11/20/16 16:15 11/20/16 20:26 11/20/16 23:51 Urine Opiates Screen Negative Urine Barbiturates Negative Urine Amphetamines Screen Negative Urine Benzodiazepines Screen Negative Urine Cocaine Screen Negative Urine Cannabinoids Negative Sodium Level 144 Potassium Level 4.5 Chloride Level 106 Carbon Dioxide Level 29 Anion Gap 14 Blood Urea Nitrogen 22 H Creatinine 1.01 Glucose Level 103 Calcium Level 10.1 Magnesium Level 2.1 Total Bilirubin 1.2 Direct Bilirubin 0.00 Indirect Bilirubin 1.2 H Aspartate Amino Transf (AST/SGOT) 47 H Alanine Aminotransferase (ALT/SGPT) 62 Alkaline Phosphatase 74 Creatine Kinase 91 77 65 Creatine Kinase Index 2.5 1.7 2.2 Creatinine Kinase MB (Mass) 2.24 1.32 1.46 Troponin I 0.065 0.057 0.056 Total Protein 8.1 Albumin 4.9 Globulin 3.20 Albumin/Globulin Ratio 1.53 Thyroid Stimulating Hormone (TSH) 0.336 L Free Thyroxine 1.14 Digoxin Level < 0.4 L Test 11/21/16 05:33 11/21/16 05:53 11/21/16 05:55 White Blood Count 7.6 Red Blood Count 5.35 Hemoglobin 15.8 Hematocrit 43.3 Mean Corpuscular Volume 80.9 L Mean Corpuscular Hemoglobin 29.5 Mean Corpuscular Hemoglobin Concent 36.5 Red Cell Distribution Width 13.2 Platelet Count 201 Mean Platelet Volume 8.6 Neutrophils % 50.5 Lymphocytes % 35.5 Monocytes % 7.1 Eosinophils % 6.5 Basophils % 0.1 Nucleated Red Blood Cells % 0.0 Neutrophils # 3.9 Lymphocytes # 2.7 Monocytes # 0.5 Eosinophils # 0.5 Basophils # 0.0 Nucleated Red Blood Cells # 0.0 Prothrombin Time 13.2 Prothrombin Time Ratio 1.0 INR International Normalized Ratio 1.00 Activated Partial Thromboplast Time 25.2 Sodium Level 143 Potassium Level 3.8 Chloride Level 110 Carbon Dioxide Level 27 Anion Gap 10 Blood Urea Nitrogen 21 H Creatinine 0.96 Glucose Level 119 Hemoglobin A1c 5.6 Calcium Level 9.0 Magnesium Level 1.9 Total Bilirubin 0.9 Direct Bilirubin 0.00 Indirect Bilirubin 0.9 Aspartate Amino Transf (AST/SGOT) 34 Alanine Aminotransferase (ALT/SGPT) 59 Alkaline Phosphatase 53 Total Protein 6.6 # Albumin 4.2 Globulin 2.40 Albumin/Globulin Ratio 1.75 Triglycerides Level 302 H Cholesterol Level 175 LDL Cholesterol, Calculated 81 HDL Cholesterol 34 Cholesterol/HDL Ratio 5.1 Thyroid Stimulating Hormone (TSH) 0.113 L Creatine Kinase 64 Creatine Kinase Index 1.6 Creatinine Kinase MB (Mass) 1.05 Troponin I 0.052 Medications Medications Current Medications Acetaminophen/ Hydrocodone Bitart ([place] (10/325)) 1 tab Q6H PRN PO PAIN; Start 11/20/16 at 14:00 Aspirin (Halfprin) 81 mg DAILY PO ; Start 11/21/16 at 09:00 Pantoprazole (Protonix Tab) 40 mg DAILY@06 PO ; Start 11/21/16 at 06:00 Docusate Sodium (Colace) 100 mg BID PO ; Start 11/20/16 at 21:00 Hydralazine HCl 10 mg 10 mg Q6H PRN IV sbp > 170mmhg; Start 11/20/16 at 14:00 Cefazolin Sodium 50 ml @ 100 mls/hr Q8 IVPB Last administered on 11/21/16 05: 51; Admin Dose 100 MLS/HR; Start 11/20/16 at 22:00 Dextrose/Sodium Chloride 1,000 ml @ 125 mls/hr Q8H IV Last administered on 05:51; Admin Dose 125 MLS/HR; Start 11/20/16 at 19:30 Dopamine HCl/ Dextrose 250 ml @ 5.58 mls/hr TITRATE IV Last administered on 21:09; Admin Dose 13.95 MLS/HR; Start 11/20/16 at 20:30 Morphine Sulfate (morphine) 2 mg Q4H PRN IV PAIN Last administered on t 08:49; Admin Dose 2 MG; Start 11/21/16 at 08:30 PRAFUL DENT MD Nov 21, 2016 13:14
[2016-11-21] MEDS ORDERED: LIDOCAINE 1%/EPI 30 ML INJ ONE (14:03)
[2016-11-21] MEDS ORDERED: SOD CHLORIDE 0.9% 1,000 ML ONE (14:03)
[2016-11-21] MEDS ORDERED: FENTAnyl 50 MCG/ML VIAL ONE (14:23)
[2016-11-21] MEDS ORDERED: MIDAZOLAM 1 MG/ML 2 ML INJ ONE (14:24)
[2016-11-21] MEDS ORDERED: ONDANSETRON 4 MG INJ IV PRN (14:30)
[2016-11-21] MEDS ORDERED: FENTAnyl 50 MCG/ML VIAL IV PRN ×2 (14:30)
[2016-11-21] MEDS ORDERED: HYDROmorphONE (0.2 MG/ML) 10ML SYG IV PRN ×3 (14:30)
[2016-11-21] MEDS ORDERED: MEPERIDINE 25 MG INJ IV PRN (14:30)
[2016-11-21] MEDS ORDERED: ACETAMINOPHEN 325 MG TAB PO PRN (16:00)
--- NOTE | 2016-11-21 16:05 | CONS ---
DATE OF ADMISSION: 11/20/2016 DATE OF CONSULTATION: 11/20/2016 REASON FOR CONSULT: Complete heart block. CHIEF COMPLAINT: Weakness, shortness of breath, lightheadedness. HISTORY OF PRESENT ILLNESS: Thank you for this referral. History obtained from the patient, ofe jarvis with Dr. Grant, review of the old chart and discussion with the staff. This 66-year-old gentlem an with history of left bundle branch block on his EKG per review of the old chart. He came to [facility] because of dizziness and lightheadedness. The patient verbalized limited activity, he ge ts short of breath and dizzy. No dustin syncope but he felt lightheaded. Symptoms started and actua lly gotten worse from yesterday. The patient has been diagnosed with shingles and he was started on medication for it 3 weeks ago. He stated he felt like the medication was "too strong" for him and it was what shingles medication cost him, although he has had any ____yesterday. PAST MEDICAL HISTORY: Hypertension. Shingles was diagnosed in 01/28/2017 around the face. Review of the old chart showed that the patient has had a chronic left bundle branch block as per old chart including in 2014 EKG which was in the computer was reviewed. MEDICATIONS AT HOME: As per medication reconciliation, personally reviewed. He is not on any beta damaris. He takes Norvasc was blood pressure. FAMILY HISTORY: No reported coronary artery disease. SOCIAL HISTORY: The patient does not smoke or drink. ALLERGIES: NO REPORTED ALLERGIES. PHYSICAL EXAMINATION: VITAL SIGNS: Temperature 98.1, heart rate of 38, blood pressure 150/55, respiration rate of 30, sat urating 100%. HEENT: Normocephalic, atraumatic. No acute distress. CARDIOVASCULAR: Bradycardia. PULMONARY: Anteriorly with no wheezes or rhonchi. GASTROINTESTINAL: Soft, nontender. EXTREMITIES: No significant edema. NEUROLOGIC: Awake, responds appropriately. PSYCHIATRIC: Calm, pleasant. DIAGNOSTIC DATA: WBC 8.7, hemoglobin 15.8, platelet of 217. Urine tox was negative. Sodium 141, p otassium 4.7, BUN of 25, creatinine 1.16, glucose 101, ____879. Chest x-ray shows no acute cardiopu lmonary disease. Echocardiogram was also personally reviewed, which showed normal LV size and systo lic function. EKG was personally reviewed, which showed normal sinus rhythm with complete heart blo ck. Review of the old chart showed the patient has had left bundle branch block previously. RECOMMENDATIONS: 1. Symptomatic complete heart block 2. History of hypertension. 3. History of abnormal EKG with left bundle branch. 4. Dizziness, no lightheadedness secondary to above. 5. Moderate renal insufficiency. 6. Shingles on the face. RECOMMENDATIONS: We will hold off on any blood pressure medications. The patient was admitted to I for close monitoring. I will place a temporary pacemaker for now as soon as [facility] Echocardiogram was obtained. Thyroid function tests will be checked. Cardiac enzymes will be repeated. Electrolytes will be repleted. If there is no evidence of any reversible causes, we w ill place a permanent pacemaker in him. Risks and alternatives of the operative procedure have been discussed with the patient. The patient consented to procedure. For now was admitted to the ICU. More than 40 minutes of critical care time was spent in management of this patient excluding any pro cedures. Dictated By: RAMONA NARAYANAN MD AV/LORENA Conf#: [id number] DID#: [id number] CC: CARLYLE ADVIS MD; THANH GRANT MD;*[facility]*
--- NOTE | 2016-11-21 16:57 | SP ---
DATE OF PROCEDURE: 11/21/2016 NAME OF PROCEDURE: 1. Left subclavian venogram radiological interpretation. 2. Implantation of dual chamber pacemaker with right atrial lead. 3. Intracardiac electrocardiogram. 4. Removal of temporary pacemaker under direct fluoroscopy. SURGEON: Ramona Leyva MD CLINICAL INDICATIONS: A 66-year-old gentleman who was admitted with symptomatic complete heart bloc k. DESCRIPTION OF PROCEDURE: Written informed consent. Risks and benefits were discussed with the pat ient, the risk of infection, vascular complication, pneumothorax, hemothorax, bleeding complication, ID, stroke, perforation, etc., discussed with the patient. The patient brought cautery catheteriza tion lab and placed in supine position and chest prepared in sterile fashion. Also evidence subclav kera venogram was performed which showed patent subclavian vein. Cephalic vein also was patent. Lef t AC groove was anesthetized with 1% lidocaine. A 3 cm incision was made in the AC groove area. Bl unt dissection was carried out. Cephalic identified and isolated and was cannulated utilizing 0.145 wire advanced to the region of the vena cava. Then, the micropuncture sheath was placed over the w arthur. The wire was removed and using modified Seldinger technique, I changed it to 8-Italian sheath. A 2 Guidewire was advanced. The sheath was removed again and once a new sheath was placed over one of the wires into the cephalic vein, right ventricular lead was advanced to right ventricular low s eptum with good position and it was screwed into place. Threshold was checked with excellent thresh old. Then, the second sheath was placed over a second wire into the cephalic vein. Right atrial le ad was placed over the appendage. Once a good position was found, it was screwed into place. Lead intracardiac electrocardiogram was performed and threshold was checked again. Both leads were tied down with 0 Ethibond. These were connected to the device. At this point, the temporary pacemaker w as removed under direct fluoroscopy avoiding contacting the other leads. Threshold was checked and again showed excellent threshold. Then, I regowned and gloved in a sterile fashion. The pocket was irrigated with antibiotic solution and device was placed into the pocket and tied in with 0 Ethibon d. Wound was closed with 1 layer of 2-0 and 3-0 Vicryl with Steri-Strips as well. The patient had no complication. The patient was to be transferred to ICU nurses in stable condition. Following in formation on the device: The device itself is a [employer] Assurity MRI pacemaker implanted MRI aileen tible pacemaker. 3. Right atrial [employer] Tendril MRI lead 52 cm. 4. Right ventricular lead is a [employer] Tendril MRI lead 58 cm. P-wave amplitude was 4.4. Thresho ld was 0.5 at 0.4 millisecond, impedance of 510. R-wave amplitude more than 12 with threshold 0.5 a t 0.4 millisecond, impedance of 660. Lower rate of 60, upper rate of 130. CONCLUSION: Successful implantation of dual chamber permanent pacemaker. Dictated By: RAMONA CROSS/LORENA Conf#: [id number] DID#: [id number]
--- NOTE | 2016-11-21 17:59 | RADRPT ---
PROCEDURE: US Thyroid. CLINICAL INDICATION: Enlarged thyroid. TECHNIQUE: High-resolution sonography of the thyroid was performed in the axial and sagittal plane s. COMPARISON: None. FINDINGS: The right lobe measures 3.5 x 1.8 x 2.0 cm. The left lobe measures 3.5 x 1.3 x 1.8 cm. The isthmus measures 0.3 cm. There is no thyroid nodule. Thyroid echogenicity is normal. The thyroid is normal in size. IMPRESSION: 1. Unremarkable thyroid ultrasound. RPTAT: QQ .Hilton Peterson MD, MD Date Time Electronically viewed and signed by .Hilton Peterson MD, on 11/21/2016 17:59 .R/
--- NOTE | 2016-11-21 18:00 | SP ---
DATE OF PROCEDURE: 11/21/2016 PROCEDURE PERFORMED: Repositioning of temporary pacemaker under direct fluoroscopy. SURGEON: Ramona Leyva MD CLINICAL INDICATIONS: A 66-year-old gentleman with complete heart block, status post permanent pace maker placement. It appears that over transportation from the laborer dairy farm to ICU and back, the tempora ry pacemaker was repositioned, but it was not capturing. DESCRIPTION OF PROCEDURE: The patient was brought into the laborer dairy farm. He already consented and prev iously was obtained. Under direct fluoroscopy, the temporary pacemaker was pulled back and placed i n the right ventricular apex with good position was seen, as a backup rate. Threshold was exc ellent. Dictated By: RAMONA LEYVA MD AV/NTS Conf#: [id number] DID#: [id number]
--- NOTE | 2016-11-21 18:14 | RADRPT ---
PROCEDURE: XR Chest. CLINICAL INDICATION: Placement of left anterior chest wall dual chamber cardiac pacer. TECHNIQUE: Single frontal view of the chest. COMPARISON: 08/18/2015. FINDINGS: Left anterior chest wall dual chamber cardiac pacer is new, with lead tips over expected locations o f right atrium right ventricle. Cardiac pacing leads appear intact. Mild cardiomegaly. Atheroscle rotic calcifications in the thoracic aorta. New mild pulmonary vascular congestion. Lungs otherwis e clear. No signs of pleural fluid or pneumothorax are seen. The osseous structures and soft tissues are unremarkable. IMPRESSION: 1. New left anterior chest wall dual chamber cardiac pacer, without evident pneumothorax. 2. New mild pulmonary vascular congestion. RPTAT: [facility] Physician Paul Date Time Electronically viewed and signed by Physician Paul on 11/21/2016 18:14 RS/
[2016-11-21] MEDS: hydrALAzine 20 MG INJ IV PRN (19:33)
[2016-11-22] VITALS (12 sets, daily range): BP systolic 128–174; BP diastolic 62–79; PULSE 68–83; RESP 17–20
[2016-11-22] MEDS: CEFAZOLIN 1 GM/50 ML (PMX) 50 ML IVPB SCH ×3 (06:29→22:16)
[2016-11-22] MEDS: PANTOPRAZOLE (EC) 40 MG TAB PO SCH (06:29)
[2016-11-22] MEDS: DEXTROSE 5%-0.9% NACL 1,000 ML IV SCH ×4 (06:32→22:16)
[2016-11-22] MEDS: HYDROCODONE/APAP (10/325) TAB PO PRN ×2 (06:38→18:25)
[2016-11-22] MEDS: hydrALAzine 20 MG INJ IV PRN (06:39)
[2016-11-22] MEDS: DOCUSATE SODIUM 100 MG CAP PO SCH ×2 (08:11→22:16)
[2016-11-22] MEDS: ASPIRIN (EC) 81 MG TAB PO SCH (08:11)
--- NOTE | 2016-11-22 09:43 | PN ---
DATE: 11/22/2016 CARDIOLOGY FOLLOWUP SUBJECTIVE: Discussed with the staff. Rhythm strip was reviewed. The patient remains 100% ventric ular paced. Denies any chest pain or pressure. No palpitations. No bleeding, no hematoma. No mor e dizziness, lightheadedness. MEDICATIONS: Reviewed. PHYSICAL EXAMINATION: VITAL SIGNS: Temperature 98, heart rate of 83, blood pressure of 170/79, respiratory rate 18, satur ating 99%. HEENT: Normocephalic, atraumatic. No acute distress. Pupils are equal. CARDIOVASCULAR: Regular rate and rhythm. PULMONARY: No wheezes heard. GASTROINTESTINAL: Soft, nontender. CHEST: Status post pacemaker with no bleeding, no hematoma. NEUROLOGIC: Awake, alert, oriented x3. PSYCHIATRIC: Calm, pleasant. DIAGNOSTIC DATA: Chest x-ray was reviewed, which shows status post pacemaker with no evidence of pn eumothorax, mild pulmonary vascular congestion. Pacemaker was interrogated, which showed normal pacemaker function. A sense 3.6, threshold 0.25 at 0.4. RV is paced dependent. Capturing at 0.5 at 0.4 msec. ASSESSMENT AND PLAN: 1. Complete heart block, symptomatic, status post permanent pacemaker. 2. Hypertension. 3. presyncope secondary to above, currently has resolved now. RECOMMENDATIONS: We will continue with the current cardiac care. Discharge planning to be consider ed. The patient was scheduled to see me as an outpatient for pacer check and followup. Instruction s about pacing were given to the patient. Dictated By: RAMONA NARAYANAN MD AV/NTS Conf#: [id number] DID#: [id number] CC: CARLYLE DAVIS MD;*[facility]*
[2016-11-22 10:33] LABS: ADD SCAN DIFF NO
[2016-11-22 10:48] LABS: BASOPHILS % 0.3 % (0.0-2.0); EOSINOPHILS # 0.4 10^3/ul (0.0-0.5); EOSINOPHILS % 6.5 % (0.0-7.0); HEMATOCRIT 44.8 % (42.0-52.0); HEMOGLOBIN 15.9 g/dl (14.0-18.0); LYMPHOCYTES # 1.1 10^3/ul (0.8-2.9); LYMPHOCYTES % 18.8 % (15.0-51.0); MEAN CORPUSCULAR HEMOGLOBIN 29.1 pg (29.0-33.0); MEAN CORPUSCULAR HGB CONC 35.5 g/dl (32.0-37.0); MEAN CORPUSCULAR VOLUME 82.1 fl (82.0-101.0); MEAN PLATELET VOLUME 8.6 fl (7.4-10.4); MONOCYTE # 0.3 10^3/ul (0.3-0.9); MONOCYTES % 5.8 % (0.0-11.0); NEUTROPHILS % 68.1 % (39.0-77.0); PLATELET COUNT 168 10^3/UL (140-415); RED BLOOD COUNT 5.46 10^6/ul (4.70-6.10); RED CELL DISTRIBUTION WIDTH 13.5 % (11.5-14.5); WHITE BLOOD COUNT 5.9 10^3/ul (4.8-10.8)
[2016-11-22 11:22] LABS: CALCIUM 8.7 mg/dl (8.4-10.2); CREATININE 0.87 mg/dl (0.61-1.24); POTASSIUM 3.6 mmol/L (3.5-5.1)
--- NOTE | 2016-11-22 12:54 | CONS ---
Date/Time of Note Date/Time of Note DATE: 11/22/16 TIME: 12:53 Assessment/Plan Assessment/Plan Chief Complaint/Hosp Course Previously healthy 66-year-old gentleman admitted with complete heart block. He has no known prior history of thyroid disease and has not been on any type of thyroid medications. He has no exposure to radiation to the neck or thyroid bed there is no family history of thyroid malignancy. There is no history of thyroid nodules. His endocrine review of systems is unremarkable. Problems: (1) Abnormal thyroid function test Status: Acute Comment: Thyroid ultrasound was entirely normal. There is no immediate indication to undertake any type of medication for this. He should be followed up as an outpatient in roughly 3-4 months with a TSH and free T4 and free T3. We will be happy to see him in the office. From an endocrine standpoint he is stable for discharge if cleared by cardiology. Consultation Date/Type/Reason Admit Date/Time Nov 20, 2016 at 14:26 Initial Consult Date 11/21/16 Type of Consultation: Endocrinology Reason for Consultation Mildly suppressed TSH in a patient with complete heart block Referring Provider: YULI PENDLETON MD 24 HR Interval Summary Constitutional: no complaints Detailed Summary Endocrine: no complaints Exam/Review of Systems Vital Signs Vitals Vital Signs Date Time Temp Pulse Resp B/P Pulse Ox O2 Delivery O2 Flow Rate FiO2 11/22/16 12:19 83 11/22/16 11:57 98.2 18 138/64 99 11/21/16 18:00 Nasal Cannula 2.0 Intake and Output 11/21/16 11/21/16 11/22/16 15:00 23:00 07:00 Intake Total 800.22 ml 125 ml Output Total 600 ml Balance 200.22 ml 125 ml Exam No changes Results Result Diagram: 11/22/16 0926 11/22/16 0926 Results 24 hrs Laboratory Tests Test 11/22/16 09:26 White Blood Count 5.9 # Red Blood Count 5.46 Hemoglobin 15.9 Hematocrit 44.8 Mean Corpuscular Volume 82.1 Mean Corpuscular Hemoglobin 29.1 Mean Corpuscular Hemoglobin Concent 35.5 Red Cell Distribution Width 13.5 Platelet Count 168 Mean Platelet Volume 8.6 Neutrophils % 68.1 Lymphocytes % 18.8 Monocytes % 5.8 Eosinophils % 6.5 Basophils % 0.3 Nucleated Red Blood Cells % 0.0 Neutrophils # 4.0 Lymphocytes # 1.1 Monocytes # 0.3 Eosinophils # 0.4 Basophils # 0.0 Nucleated Red Blood Cells # 0.0 Sodium Level 138 Potassium Level 3.6 Chloride Level 107 Carbon Dioxide Level 23 Anion Gap 12 Blood Urea Nitrogen 13 Creatinine 0.87 Glucose Level 154 Calcium Level 8.7 Medications Medications Current Medications Acetaminophen/ Hydrocodone Bitart ([place] ()) 1 tab Q6H PRN PO PAIN Last administered on 11/22/16 06:38; Admin Dose 1 TAB; Start 11/20/16 at 14:00 Aspirin (Halfprin) 81 mg DAILY PO Last administered on 11/22/16 08:11; Admin Dose 81 MG; Start 11/21/16 at 09:00 Pantoprazole (Protonix Tab) 40 mg DAILY@06 PO Last administered on 11/22/16 06 :29; Admin Dose 40 MG; Start 11/21/16 at 06:00 Docusate Sodium (Colace) 100 mg BID PO Last administered on 11/22/16 08:11; Admin Dose 100 MG; Start 11/20/16 at 21:00 Hydralazine HCl 10 mg 10 mg Q6H PRN IV sbp > 170mmhg Last administered on 06:39; Admin Dose 10 MG; Start 11/20/16 at 14:00 Cefazolin Sodium 50 ml @ 100 mls/hr Q8 IVPB Last administered on 11/22/16 06: 29; Admin Dose 100 MLS/HR; Start 11/20/16 at 22:00 Dextrose/Sodium Chloride (D5-NS) 1,000 ml @ 125 mls/hr Q8H IV Last administered on 11/22/16 06:32; Admin Dose 125 MLS/HR; Start 11/20/16 at 19:30 Morphine Sulfate (morphine) 2 mg Q4H PRN IV PAIN Last administered on 08:49; Admin Dose 2 MG; Start 11/21/16 at 08:30 Acetaminophen (Tylenol Tab) 650 mg Q4H PRN PO NON-CARDIAC PAIN LEVEL (1-3) Last administered on 11/22/16 01:44; Admin Dose 650 MG; Start 11/21/16 at 16:00 Morphine Sulfate (morphine) 1 mg Q1H PRN IV PAIN; Start 11/21/16 at 16:00 PRAFUL DENT MD Nov 22, 2016 12:54
--- NOTE | 2016-11-22 18:06 | PN ---
Date/Time of Note Date/Time of Note DATE: 11/22/16 TIME: 18:04 Assessment/Plan VTE Prophylaxis VTE Prophylaxis Intervention: SCD's Lines/Catheters IV Catheter Type (from Nrs): Saline Lock Urinary Cath still in place: No Assessment/Plan Assessment/Plan 1. Symptomatic complete heart block s/p pacemaker placement 2 hypertension 3. History of abnormal EKG with left bundle branch. Cardiology has been consulted 4. Dizziness, no lightheadedness secondary to above. 5. Moderate renal insufficiency. Continue IV fluid, follow renal panel in a.m. 6. Shingles on the face. Status post therapy and previous hospitalization, continue to monitor 7. Abnormal thyroid panel. TSH found to be 0.113 within normal free T4 s/p endocrinology consult Subjective 24 Hr Interval Summary Free Text/Dictation s/p pacemaker placement, BP stable,a febrile Exam/Review of Systems Vital Signs Vitals Vital Signs Date Time Temp Pulse Resp B/P Pulse Ox O2 Delivery O2 Flow Rate FiO2 11/22/16 16:22 79 11/22/16 15:57 98.0 18 128/62 99 11/21/16 18:00 Nasal Cannula 2.0 Intake and Output 11/21/16 11/21/16 11/22/16 15:00 23:00 07:00 Intake Total 800.22 ml 125 ml Output Total 600 ml Balance 200.22 ml 125 ml Exam HEENT: Normocephalic, atraumatic. No acute distress. Pupils are equal. CARDIOVASCULAR: Regular rate and rhythm. PULMONARY: No wheezes heard. GASTROINTESTINAL: Soft, nontender. CHEST: Status post pacemaker with no bleeding, no hematoma. NEUROLOGIC: Awake, alert, oriented x3. PSYCHIATRIC: Calm, pleasant. Results Result Diagram: 11/22/1692511/22/16 09 Results 24 hrs Laboratory Tests Test 11/22/16 09:26 White Blood Count 5.9 # Red Blood Count 5.46 Hemoglobin 15.9 Hematocrit 44.8 Mean Corpuscular Volume 82.1 Mean Corpuscular Hemoglobin 29.1 Mean Corpuscular Hemoglobin Concent 35.5 Red Cell Distribution Width 13.5 Platelet Count 168 Mean Platelet Volume 8.6 Neutrophils % 68.1 Lymphocytes % 18.8 Monocytes % 5.8 Eosinophils % 6.5 Basophils % 0.3 Nucleated Red Blood Cells % 0.0 Neutrophils # 4.0 Lymphocytes # 1.1 Monocytes # 0.3 Eosinophils # 0.4 Basophils # 0.0 Nucleated Red Blood Cells # 0.0 Sodium Level 138 Potassium Level 3.6 Chloride Level 107 Carbon Dioxide Level 23 Anion Gap 12 Blood Urea Nitrogen 13 Creatinine 0.87 Glucose Level 154 Calcium Level 8.7 Medications Medications Current Medications Acetaminophen/ Hydrocodone Bitart ([place] (10/325)) 1 tab Q6H PRN PO PAIN Last administered on 11/22/16 06:38; Admin Dose 1 TAB; Start 11/20/16 at 14:00 Aspirin (Halfprin) 81 mg DAILY PO Last administered on 11/22/16 08:11; Admin Dose 81 MG; Start 11/21/16 at 09:00 Pantoprazole (Protonix Tab) 40 mg DAILY@06 PO Last administered on 11/22/16 06 :29; Admin Dose 40 MG; Start 11/21/16 at 06:00 Docusate Sodium (Colace) 100 mg BID PO Last administered on 11/22/16 08:11; Admin Dose 100 MG; Start 11/20/16 at 21:00 Hydralazine HCl 10 mg 10 mg Q6H PRN IV sbp > 170mmhg Last administered on 06:39; Admin Dose 10 MG; Start 11/20/16 at 14:00 Cefazolin Sodium 50 ml @ 100 mls/hr Q8 IVPB Last administered on 11/22/16 14: 59; Admin Dose 100 MLS/HR; Start 11/20/16 at 22:00; Stop 11/22/16 at 23:45 Dextrose/Sodium Chloride (D5-NS) 1,000 ml @ 125 mls/hr Q8H IV Last administered on 11/22/16 15:00; Admin Dose 125 MLS/HR; Start 11/20/16 at 19:30 Morphine Sulfate (morphine) 2 mg Q4H PRN IV PAIN Last administered on 08:49; Admin Dose 2 MG; Start 11/21/16 at 08:30 Acetaminophen (Tylenol Tab) 650 mg Q4H PRN PO NON-CARDIAC PAIN LEVEL (1-3) Last administered on 11/22/16 01:44; Admin Dose 650 MG; Start 11/21/16 at 16:00 Morphine Sulfate (morphine) 1 mg Q1H PRN IV PAIN; Start 11/21/16 at 16:00 SANTOSH SANTIAGO MD Nov 22, 2016 18:06
[2016-11-23] VITALS (10 sets, daily range): BP systolic 133–167; BP diastolic 66–79; PULSE 62–83; RESP 18–20
[2016-11-23] MEDS: hydrALAzine 20 MG INJ IV PRN (00:13)
[2016-11-23] MEDS: DEXTROSE 5%-0.9% NACL 1,000 ML IV SCH ×2 (03:30→11:30)
[2016-11-23] MEDS: PANTOPRAZOLE (EC) 40 MG TAB PO SCH (05:35)
[2016-11-23] MEDS: ASPIRIN (EC) 81 MG TAB PO SCH (08:03)
[2016-11-23] MEDS: DOCUSATE SODIUM 100 MG CAP PO SCH (08:03)
[2016-11-23 09:27] LABS: ADD SCAN DIFF NO
[2016-11-23 09:31] LABS: BASOPHILS % 0.2 % (0.0-2.0); EOSINOPHILS # 0.4 10^3/ul (0.0-0.5); EOSINOPHILS % 8.3 % (0.0-7.0); HEMATOCRIT 46.6 % (42.0-52.0); HEMOGLOBIN 16.3 g/dl (14.0-18.0); LYMPHOCYTES # 1.8 10^3/ul (0.8-2.9); LYMPHOCYTES % 34.9 % (15.0-51.0); MEAN CORPUSCULAR HEMOGLOBIN 29.1 pg (29.0-33.0); MEAN CORPUSCULAR VOLUME 83.1 fl (82.0-101.0); MEAN PLATELET VOLUME 8.7 fl (7.4-10.4); MONOCYTE # 0.5 10^3/ul (0.3-0.9); MONOCYTES % 8.7 % (0.0-11.0); NEUTROPHIL # 2.4 10^3/ul (1.6-7.5); NEUTROPHILS % 47.1 % (39.0-77.0); PLATELET COUNT 146 10^3/UL (140-415); RED BLOOD COUNT 5.61 10^6/ul (4.70-6.10); RED CELL DISTRIBUTION WIDTH 14.1 % (11.5-14.5); WHITE BLOOD COUNT 5.2 10^3/ul (4.8-10.8)
[2016-11-23 09:58] LABS: CALCIUM 9.5 mg/dl (8.4-10.2); CREATININE 0.89 mg/dl (0.61-1.24); POTASSIUM 4.2 mmol/L (3.5-5.1)
--- NOTE | 2016-11-23 09:59 | PN ---
DATE: 11/23/2016 CARDIOLOGY FOLLOWUP PROGRESS NOTE SUBJECTIVE: Discussed the patient with the staff. Rhythm strip was reviewed. The patient remains in ventricular paced rhythm. Denies any syncope, presyncope, shortness of breath to me. The patien t is worried that he does not have anybody to take care of him at home. No chest wall pain or press ure. MEDICATIONS: Reviewed. PHYSICAL EXAMINATION: VITAL SIGNS: Temperature 98.1, heart rate 83, blood pressure 139/70, respiratory rate of 19. [place]atur ating 97%. HEENT: Normocephalic, atraumatic. No acute distress. Pupils are equal. CARDIOVASCULAR: Regular rate and rhythm. Systolic murmur. PULMONARY: With no wheezes. GASTROINTESTINAL: Soft, nontender. EXTREMITIES: No significant edema. NEUROLOGIC: Awake, alert. Appears to be calm and pleasant. ASSESSMENT AND PLAN: 1. Complete heart block. 2. Status post permanent pacemaker. 3. Hypertension, under good control now. 4. Chronic kidney disease, currently stable. RECOMMENDATIONS: The patient is stable from a cardiac standpoint for discharge. He has been schedu led for outpatient followup in 2 weeks. Keep the wound clean and dry. Have to wear the sling over the next 2 to 3 weeks and avoid lifting of his left arm, otherwise no cardiac restrictions. Dischar ge planning to a fpc versus home as per internal medicine. Dictated By: ARMONA CROSS/LORENA Conf#: [id number] DID#: [id number] CC: Gunn;*EndCC*
--- NOTE | 2016-11-23 12:38 | PN ---
Date/Time of Note Date/Time of Note DATE: 11/23/16 TIME: 12:37 Assessment/Plan VTE Prophylaxis VTE Prophylaxis Intervention: SCD's, other Lines/Catheters IV Catheter Type (from Nrsg): Peripheral IV Urinary Cath still in place: No Assessment/Plan Assessment/Plan 1. Symptomatic complete heart block s/p pacemaker placement 2 hypertension 3. History of abnormal EKG with left bundle branch. Cardiology has been consulted 4. Dizziness, no lightheadedness secondary to above. 5. Moderate renal insufficiency. Continue IV fluid, follow renal panel in a.m. 6. Shingles on the face. Status post therapy and previous hospitalization, continue to monitor 7. Abnormal thyroid panel. TSH found to be 0.113 within normal free T4 s/p endocrinology consult d/c home today Subjective 24 Hr Interval Summary Free Text/Dictation doing ok, BP stable,afebrile Exam/Review of Systems Vital Signs Vitals Vital Signs Date Time Temp Pulse Resp B/P Pulse Ox O2 Delivery O2 Flow Rate FiO2 11/23/16 12:24 83 11/23/16 11:19 98.5 139/66 98 11/23/16 07:46 19 11/23/16 01:26 Room Air 11/21/16 18:00 2.0 Intake and Output 11/22/16 11/22/16 11/23/16 15:00 23:00 07:00 Intake Total 1000 ml 1025 ml 1300 ml Output Total 4 ml Balance 1000 ml 1021 ml 1300 ml Results Result Diagram: 11/23/16 0915 11/23/16 0915 Results 24 hrs Laboratory Tests Test 11/23/16 09:15 White Blood Count 5.2 Red Blood Count 5.61 Hemoglobin 16.3 Hematocrit 46.6 Mean Corpuscular Volume 83.1 Mean Corpuscular Hemoglobin 29.1 Mean Corpuscular Hemoglobin Concent 35.0 Red Cell Distribution Width 14.1 Platelet Count 146 Mean Platelet Volume 8.7 Neutrophils % 47.1 Lymphocytes % 34.9 Monocytes % 8.7 Eosinophils % 8.3 H Basophils % 0.2 Nucleated Red Blood Cells % 0.0 Neutrophils # 2.4 Lymphocytes # 1.8 Monocytes # 0.5 Eosinophils # 0.4 Basophils # 0.0 Nucleated Red Blood Cells # 0.0 Sodium Level 142 Potassium Level 4.2 Chloride Level 110 Carbon Dioxide Level 23 Anion Gap 13 Blood Urea Nitrogen 12 Creatinine 0.89 Glucose Level 110 # Calcium Level 9.5 Medications Medications Current Medications Acetaminophen/ Hydrocodone Bitart ([place] (10/325)) 1 tab Q6H PRN PO PAIN Last administered on 11/22/16 18:25; Admin Dose 1 TAB; Start 11/20/16 at 14:00 Aspirin (Halfprin) 81 mg DAILY PO Last administered on 11/23/16 08:03; Admin Dose 81 MG; Start 11/21/16 at 09:00 Pantoprazole (Protonix Tab) 40 mg DAILY@06 PO Last administered on 11/23/16 05 :35; Admin Dose 40 MG; Start 11/21/16 at 06:00 Docusate Sodium (Colace) 100 mg BID PO Last administered on 11/23/16 08:03; Admin Dose 100 MG; Start 11/20/16 at 21:00 Hydralazine HCl 10 mg 10 mg Q6H PRN IV sbp > 170mmhg Last administered on 00:13; Admin Dose 10 MG; Start 11/20/16 at 14:00 Dextrose/Sodium Chloride (D5-NS) 1,000 ml @ 125 mls/hr Q8H IV Last administered on 11/22/16 22:16; Admin Dose 125 MLS/HR; Start 11/20/16 at 19:30 Morphine Sulfate (morphine) 2 mg Q4H PRN IV PAIN Last administered on 08:49; Admin Dose 2 MG; Start 11/21/16 at 08:30 Acetaminophen (Tylenol Tab) 650 mg Q4H PRN PO NON-CARDIAC PAIN LEVEL (1-3) Last administered on 11/22/16 01:44; Admin Dose 650 MG; Start 11/21/16 at 16:00 Morphine Sulfate (morphine) 1 mg Q1H PRN IV PAIN; Start 11/21/16 at 16:00 SANTOSH SANTIAGO MD Nov 23, 2016 12:38
--- NOTE | 2016-11-23 12:39 | PDOCDIS ---
Discharge Instructions CONDITION Patient Condition: Good HOME CARE INSTRUCTIONS: Special Diet: 2gm Na/ vegan ACTIVITY: Activity Restrictions: Slowly Increase Activity Rest between Activity Avoid heavy lifting Avoid Heavy Housework FOLLOW UP/APPOINTMENTS Appointments follow up with his own PMD in 1-2 week after discharge. Follow up with senior safety support manager in 1-2 week after discharge SANTOSH SANTIAGO MD Nov 23, 2016 12:39
[2016-11-23] MEDS ORDERED: ACET325T40 PO (12:40)
[2016-11-23] MEDS ORDERED: CEPH500C PO (12:40)
[2016-11-23] MEDS ORDERED: ASPI-664 PO (12:40)
--- NOTE | 2016-11-23 15:43 | RADRPT ---
Vent Rate: 65 bpm RR Interval: [address] Interval: 138 msec QRS Duration: 146 msec QT Interval: 478 msec QTC Interval: 497 msec P-R-T [place]: 59 - -47 - 109 degrees Electronic ventricular pacemaker Electronically Signed By: Arnaldo Henderson [id number]
== END 2016-11-23 18:25 | disposition home health service (06) | DRG 244 ==
LOC: E/R 11:02 → ICU 14:26 → MS4 11-21 20:40 → TEL 11-22 19:48
PROVIDERS: ADMIT Family Medicine; ATTEND Family Medicine
PROC: 5A1223Z Performance of Cardiac Pacing, Continuous (ICD-10-PCS; 2016-11-20)
PROC: 0JH606Z Insertion of Pacemaker, Dual Chamber into Chest Subcutaneous Tissue and Fascia, Open Approach (ICD-10-PCS; 2016-11-21)
PROC: 02HK3JZ Insertion of Pacemaker Lead into Right Ventricle, Percutaneous Approach (ICD-10-PCS; 2016-11-21)
PROC: 02H63JZ Insertion of Pacemaker Lead into Right Atrium, Percutaneous Approach (ICD-10-PCS; principal; 2016-11-21 14:30)
DX: I44.2 Atrioventricular block, complete (principal); B02.9 Zoster without complications; I10 Essential (primary) hypertension; N28.9 Disorder of kidney and ureter, unspecified
CPT/HCPCS: 36415; 71010; 76536; 80048; 80053; 80061; 80162; 80307; 82550; 82553; 83036; 83735; 83880; 84439; 84443; 84481; 84484; 85025; 85610; 85730; 87081; 93005; 93306; C1894; J0360; J0690; J1265; J2250; J2270; J3010; J7040; J7042

== ENCOUNTER 2017-06-03 12:59 | Inpatient (IN) | payer MEDICAID ==
[~2017-06-03] VITALS: Ht 157.5 cm; Wt 81.8 kg
[~2017-06-03 12:59] MED LIST changes: +ACET325T40 PO; +ASPI-664 PO; -BACI3.5O19 BOTH EYES; +BENA20TA65 PO; +HYDR25TA6 PO
[2017-06-03] MEDS ORDERED: CEFEPIME 2GM/50 ML (PMX) 50 ML IVPB STA (17:10)
[2017-06-03 17:43] LABS: BASOPHILS % 0.3 % (0.0-2.0); EOSINOPHILS # 0.2 10^3/ul (0.0-0.5); EOSINOPHILS % 1.8 % (0.0-7.0); HEMATOCRIT 52.4 % (42.0-52.0); HEMOGLOBIN 18.1 g/dl (14.0-18.0); LYMPHOCYTES # 1.8 10^3/ul (0.8-2.9); LYMPHOCYTES % 15.4 % (15.0-51.0); MEAN CORPUSCULAR HEMOGLOBIN 28.4 pg (29.0-33.0); MEAN CORPUSCULAR HGB CONC 34.5 g/dl (32.0-37.0); MEAN CORPUSCULAR VOLUME 82.3 fl (82.0-101.0); MEAN PLATELET VOLUME 9.5 fl (7.4-10.4); MONOCYTE # 0.9 10^3/ul (0.3-0.9); MONOCYTES % 7.3 % (0.0-11.0); NEUTROPHIL # 8.7 10^3/ul (1.6-7.5); NEUTROPHILS % 74.6 % (39.0-77.0); PLATELET COUNT 135 10^3/UL (140-415); RED BLOOD COUNT 6.37 10^6/ul (4.70-6.10); RED CELL DISTRIBUTION WIDTH 13.6 % (11.5-14.5); WHITE BLOOD COUNT 11.6 10^3/ul (4.8-10.8)
--- NOTE | 2017-06-03 17:52 | RADRPT ---
PROCEDURE: XR Chest. CLINICAL INDICATION: Sepsis. Cough. TECHNIQUE: Single frontal view. COMPARISON: February 03, 2017. FINDINGS: The lungs are clear. The heart size is normal. Calcification is present in the aorta consistent with atherosclerosis. The re is a left-sided dual lead permanent pacemaker. There is no pleural effusion. There is no pneumothorax. IMPRESSION: 1. Atherosclerosis. 2. Permanent pacemaker. 3. Otherwise unremarkable chest radiograph. RPTAT: QQ .Hilton Peterson MD, MD Date Time Electronically viewed and signed by .Hilton Peterson MD, MD on 06/03/2017 17:52 .R/
[2017-06-03 18:01] LABS: INR 0.93; PROTIME 12.6 Sec (11.9-14.9)
[2017-06-03 18:02] LABS: PARTIAL THROMBOPLASTIN TIME 27.3 Sec (25.0-35.0)
[2017-06-03 18:13] LABS: ADD UMIC YES; UR ASCORBIC ACID NEGATIVE (NEGATIVE); UR BILIRUBIN (Dip) NEGATIVE (NEGATIVE); UR BLOOD (Dip) 1+ mg/dL (NEGATIVE); UR CLARITY CLEAR (CLEAR); UR COLOR YELLOW (YELLOW); UR GLUCOSE (Dip) NEGATIVE (NEGATIVE); UR KETONES (Dip) NEGATIVE (NEGATIVE); UR LEUKOCYTE ESTERASE (Dip) NEGATIVE Leu/ul (NEGATIVE); UR NITRITE (Dip) NEGATIVE (NEGATIVE); UR RBC 1 /HPF (0-5); UR TOTAL PROTEIN (Dip) NEGATIVE (NEGATIVE); UR UROBILINOGEN (Dip) NEGATIVE (NEGATIVE)
[2017-06-03 18:14] LABS: ALBUMIN/GLOBULIN RATIO 1.08; BILIRUBIN,INDIRECT 0.9 mg/dl (0-1.1); BILIRUBIN,TOTAL 0.9 mg/dl (0.2-1.3); CALCIUM 9.3 mg/dl (8.4-10.2); CREATININE 1.26 mg/dl (0.61-1.24); POTASSIUM 3.9 mmol/L (3.5-5.1); TOTAL PROTEIN 7.7 g/dl (6.1-8.1)
[2017-06-03] MEDS ORDERED: IBUPROFEN 800 MG TAB PO ONE (18:30)
[2017-06-03 18:36] LABS: TROPONIN-I 0.027 ng/ml (0.00-0.12)
[2017-06-03 20:00] VITALS: TEMP 99.9
[2017-06-03] MEDS ORDERED: VANCOMYCIN 1 GM (PMX) 250 ML IVPB SCH (20:30)
[2017-06-03] MEDS ORDERED: SOD CHLORIDE 0.9% 500 ML IV ONE (21:00)
[2017-06-03] MEDS ORDERED: SOD CHLORIDE 0.9% 1,000 ML IV ONE ×2 (21:00)
[2017-06-03] MEDS ORDERED: ONDANSETRON 4 MG INJ IV PRN (21:30)
[2017-06-03] MEDS ORDERED: ACETAMINOPHEN 325 MG TAB PO PRN (21:30)
--- NOTE | 2017-06-03 23:04 | ERD ---
ER Documentation Chief Complaint Chief Complaint BODY ACHES FEVER AND LEFT SIDE CHEST PRESSURE HPI 67-year-old male with mild chest discomfort described as a pressure mostly on his left side as well as fever generalized body aches including his lower legs. He denies any cough. Denies shortness of breath. Does feel general last weakness. Does not remember any specific injury to his legs. ROS All systems reviewed and are negative except as per history of present illness. Medications Home Meds Active Scripts Benazepril Hcl* (Lotensin*) 20 Mg Tablet, 20 MG PO DAILY, #30 TAB Prov:GRACE ESQUIVEL MD 02/03/17 Hydrochlorothiazide* (Hydrochlorothiazide*) 25 Mg Tab, 25 MG PO DAILY, #30 TAB Prov:GRACE ESQUIVEL MD 02/03/17 Acetaminophen (MAPAP) 325 Mg Tablet, 650 MG PO Q6H Y for NON-CARDIAC PAIN LEVEL (1-3), #30 TAB Prov:SANTOSH SANTIAGO MD 11/23/16 Aspirin* (Aspirin* EC) 81 Mg Tablet.dr, 81 MG PO DAILY, #100 Prov:SANTOSH SANTIAGO MD 11/23/16 Cephalexin* (Cephalexin*) 500 Mg Capsule, 500 MG PO TID, #15 CAP Prov:SANTOSH SANTIAGO MD 11/23/16 Acyclovir* (Zovirax*) 800 Mg Tablet, 800 MG PO 5 TIMES DAILY for 7 Days, TAB Prov:HÉCTOR FAYE MD 10/06/16 Hydrocodone/Acetaminophen ([place] 10-325 Tablet) 1 Each Tablet, 1 TAB PO Q6H Y for PAIN, #20 TAB Prov:HÉCTOR FAYE MD 10/06/16 Reported Medications Acetaminophen* (Acetaminophen*) 500 MG Extra Strength Tablet, 500 MG PO Q4H Y for PAIN AND OR ELEVATED TEMP, TAB 10/06/16 Amlodipine Besylate* (Amlodipine Besylate*) 10 Mg Tablet, 10 MG PO DAILY, #30 TAB 10/06/16 Prednisolone Acetate* (Pred Forte*) 5 Ml Susp, 1 DROP BOTH EYES QID Y for Q7D, EA 10/06/16 Allergies Allergies: Coded Allergies: No Known Allergy (Unverified , 10/06/16) PMhx/Soc History of Surgery: No Anesthesia Reaction: No Hx Neurological Disorder: No Hx Respiratory Disorders: No Hx Cardiac Disorders: Yes (HTN) Hx Psychiatric Problems: No Hx Miscellaneous Medical Probl: No Hx Alcohol Use: No Hx Substance Use: No Hx Tobacco Use: No Smoking Status: Never smoker Physical Exam Vitals Vital Signs Date Time Temp Pulse Resp B/P Pulse Ox O2 Delivery O2 Flow Rate FiO2 06/03/17 22:04 68 14 146/60 100 Room Air 06/03/17 20:00 99.9 74 15 141/67 99 Room Air 06/03/17 13:08 101.0 102 18 186/87 97 Physical Exam Const: [] Distress, appears uncomfortable Head: Atraumatic Eyes: Normal Conjunctiva EOMI, PERRLA ENT: Normal External Ears, Nose and Mouth. Neck: Full range of motion..~ No meningismus. Resp: Clear to auscultation bilaterally Cardio: Regular tachycardia, no murmurs Abd: Soft, non tender, non distended. Normal bowel sounds Skin: No petechiae or rashes Back: No midline or flank tenderness Ext: No cyanosis, bilateral lower extremity edema with calor of the level of mid calf and pugh, mild tenderness to palpation, distal pulses intact bilateral lower extremities. Appearance of cellulitis with no specific area of absence of flexion Neur: Awake and alert oriented 3, no focal deficits Psych: Normal Mood and Affect Result Diagram: 06/03/17 1732 06/03/17 1732 Results 24 hrs Laboratory Tests Test 06/03/17 17:30 06/03/17 17:32 06/03/17 19:40 06/03/17 21:13 Urine Color YELLOW Urine Clarity CLEAR Urine pH 5.0 Urine Specific [place] 1.020 Urine Ketones NEGATIVEmg/dL Urine Nitrite NEGATIVEmg/dL Urine Bilirubin NEGATIVEmg/dL Urine Urobilinogen NEGATIVEmg/dL Urine Leukocyte Esterase NEGATIVELeu/ul Urine Microscopic RBC 1/HPF Urine Microscopic WBC 0/HPF Urine Hemoglobin 1+mg/dL Urine Glucose NEGATIVEmg/dL Urine Total Protein NEGATIVEmg/dl White Blood Count 11.610^3/ul Red Blood Count 6.3710^6/ul Hemoglobin 18.1g/dl Hematocrit 52.4% Mean Corpuscular Volume 82.3fl Mean Corpuscular Hemoglobin 28.4pg Mean Corpuscular Hemoglobin Concent 34.5g/dl Red Cell Distribution Width 13.6% Platelet Count 35038^3/UL Mean Platelet Volume 9.5fl Neutrophils % 74.6% Lymphocytes % 15.4% Monocytes % 7.3% Eosinophils % 1.8% Basophils % 0.3% Nucleated Red Blood Cells % 0.0/100WBC Neutrophils # 8.710^3/ul Lymphocytes # 1.810^3/ul Monocytes # 0.910^3/ul Eosinophils # 0.210^3/ul Basophils # 0.010^3/ul Nucleated Red Blood Cells # 0.010^3/ul Prothrombin Time 12.6Sec Prothrombin Time Ratio 1.0 INR International Normalized Ratio 0.93 Activated Partial Thromboplast Time 27.3Sec Sodium Level 139mmol/L Potassium Level 3.9mmol/L Chloride Level 101mmol/L Carbon Dioxide Level 28mmol/L Anion Gap 14 Blood Urea Nitrogen 28mg/dl Creatinine 1.26mg/dl Glucose Level 98mg/dl Lactic Acid Level 0.8mmol/L 4.0mmol/L 1.6mmol/L Calcium Level 9.3mg/dl Total Bilirubin 0.9mg/dl Direct Bilirubin 0.00mg/dl Indirect Bilirubin 0.9mg/dl Aspartate Amino Transf (AST/SGOT) 32IU/L Alanine Aminotransferase (ALT/SGPT) 45IU/L Alkaline Phosphatase 83IU/L Troponin I 0.027ng/ml B-Type Natriuretic Peptide 191PG/ML Total Protein 7.7g/dl Albumin 4.0g/dl Globulin 3.70g/dl Albumin/Globulin Ratio 1.08 Lipase 205U/L Current Medications Medications (Trade) Dose Ordered Sig/Fadumo Route PRN Reason Start Time Stop Time Status Last Admin Dose Admin Cefepime HCl (Maxipime 2gm/50 ml (Pmx)) 50 ml @ 100 mls/hr ONCE STAT IVPB 06/03/17 17:10 06/03/17 17:39 DC 06/03/17 17:35 Ibuprofen 800 mg 800 mg ONCE ONCE PO 06/03/17 18:30 06/03/17 18:31 DC 06/03/17 18:26 Vancomycin HCl 250 ml @ 125 mls/hr ONCE IVPB 06/03/17 20:30 06/03/17 22:29 DC 06/03/17 21:01 Sodium Chloride 1,000 ml @ 1,000 mls/hr Q1H ONCE IV 06/03/17 21:00 06/03/17 21:59 DC 06/03/17 21:11 Sodium Chloride 1,000 ml @ 1,000 mls/hr Q1H ONCE IV 06/03/17 21:00 12 21:59 DC 06/03/17 21:11 Sodium Chloride (NS) 500 ml @ 500 mls/hr Q1H ONCE IV 06/03/17 21:00 06/03/17 21:59 DC 06/03/17 21:11 Ondansetron HCl (Zofran Inj) 4 mg BRIDGE ORDER PRN IV NAUSEA AND/OR VOMITING 06/03/17 21:30 06/04/17 21:29 Acetaminophen (Tylenol Tab) 650 mg ER BRIDGE PRN PO MILD PAIN/FEVER 06/03/17 21:30 06/04/17 21:29 Procedures/MDM Bilateral lower extremity cellulitis with technical septic shock. Patient was treated with cefepime empirically as well as then given vancomycin IV. He was given 30 cc/kg of IV fluid which resolved his unstable vital signs and corrected his fever. At his pain was much better after fluid administration to and did not require pain medication. Second lactic acid may be erroneous his initial lactic acid was not elevated and the second lactic acid was only doubled the first. ST depression in one single lead on his EKG with negative troponin. I have low suspicion for acute cardiac ischemia. She has apparent ill-appearing of sepsis and will be admitted to on day for further workup and management. EKG interpretation: Sinus tachycardia rate of 102, normal axis, ST depressions in lead V6 only concerning for potential ischemia, noticed the elevations. J- point elevations in anteroseptal precordial leads. Normal intervals. Abnormal EKG night monitor interpretation: Initial sinus tachycardia followed by normal sinus rhythm. No arrhythmias Chest x-ray interpretation: I see no acute process. I see no infiltrate, pneumothorax, no palmar edema, no fractures Critical care time greater than 35 minutes: Screws treatment of sepsis, and duration of unstable vital signs, empiric antibiotic therapy, careful fluid administration, discussion with patient admitting doctor, review of chart. Repeat visits patient's bedside to reassess status. This does not include any billable procedures. Perfusion Reassessment for Septic Shock: Time 2114 Temp 98.8, Pulse [76], RR 20, BP 126/64 Heart Exam: [Regular rate and rhythm no murmurs Lung Exam: [No Crackles] Capillary Refill: Less than 1 second Peripheral Pulses: [Radially present] Skin: [Within normal limits except for lower extremities. Departure Diagnosis: Primary Impression: Sepsis due to cellulitis Additional Impressions: Bilateral lower leg cellulitis Renal insufficiency Dehydration Septic shock Condition: Serious PRAFUL CORTEZ DO Jun 03, 2017 23:04
[2017-06-03 23:37] VITALS: BP 154/70; RESP 19
[2017-06-03] MEDS ORDERED: CHLO25TA13 PO (23:43)
[2017-06-03] MEDS ORDERED: KETOTIFEN 0.025% OPHTHALMIC (23:43)
[2017-06-03] MEDS ORDERED: IBUP50DR52 PO (23:43)
[2017-06-03] MEDS ORDERED: DEXT1DRO7 OP (23:43)
[2017-06-03] MEDS ORDERED: VIT D2 PO (23:43)
[2017-06-03 23:45] VITALS: BP 154/70; RESP 19
[2017-06-04] VITALS (7 sets, daily range): BP systolic 138–164; BP diastolic 63–75; PULSE 66–69; RESP 16–19; Ht 157.5 cm; Wt 81.8 kg
[2017-06-04] MEDS ORDERED: morphine 2 MG INJ IV PRN
[2017-06-04] MEDS ORDERED: VANCOMYCIN IV PER PHARMACY XX SCH
[2017-06-04] MEDS ORDERED: IBUP-1542 PO (00:02)
[2017-06-04] MEDS ORDERED: IBUPROFEN 600 MG TAB PO PRN (00:30)
[2017-06-04] MEDS ORDERED: ARTIFICIAL TEARS 15 ML OPH BOTH EYES PRN (01:00)
[2017-06-04 06:17] LABS: BASOPHILS % 0.5 % (0.0-2.0); EOSINOPHILS # 0.6 10^3/ul (0.0-0.5); EOSINOPHILS % 6.9 % (0.0-7.0); HEMATOCRIT 49.2 % (42.0-52.0); HEMOGLOBIN 16.8 g/dl (14.0-18.0); LYMPHOCYTES # 2.2 10^3/ul (0.8-2.9); LYMPHOCYTES % 27.1 % (15.0-51.0); MEAN CORPUSCULAR HEMOGLOBIN 28.5 pg (29.0-33.0); MEAN CORPUSCULAR HGB CONC 34.1 g/dl (32.0-37.0); MEAN CORPUSCULAR VOLUME 83.5 fl (82.0-101.0); MEAN PLATELET VOLUME 9.3 fl (7.4-10.4); MONOCYTE # 0.7 10^3/ul (0.3-0.9); NEUTROPHIL # 4.6 10^3/ul (1.6-7.5); PLATELET COUNT 122 10^3/UL (140-415); RED BLOOD COUNT 5.89 10^6/ul (4.70-6.10); RED CELL DISTRIBUTION WIDTH 12.9 % (11.5-14.5); WHITE BLOOD COUNT 8.1 10^3/ul (4.8-10.8)
--- NOTE | 2017-06-04 07:06 | HP ---
Date/Time of Note Date/Time of Note DATE: 06/04/17 TIME: 06:54 Assessment/Plan VTE Prophylaxis VTE Prophylaxis Intervention: heparin Lines/Catheters IV Catheter Type (from Nrs): Saline Lock Assessment/Plan Assessment/Plan 1. Chest pain: Rule out ACS -Continue telemetry monitoring -Supplemental oxygen, aspirin, statin, beta-damaris with as needed nitro morphine -Trend troponin -Cardiology consult 2. Sepsis, as evidenced by fever and tachycardia: Secondary to bilateral lower extremity cellulitis -IV antibiotic -Follow-up culture results 3. BERNY -Check a.m. lab -Renal ultrasound and nephrology consult as needed 4. History of complete heart block, status post pacemaker in November of this year -Monitor 5. Hypertension: Blood pressure not within goal -Adjust antihypertensives as needed for better BP control HPI/ROS Admit Date/Time Admit Date/Time Jun 03, 2017 at 21:25 Hx of Present Illness This is a 67-year-old male with a history of hypertension, complete heart block status post pacemaker, LBBB and facial shingles. Patient presented to the ER complaining of pressure-like left-sided chest pain 2 months with radiation to the left arm, bilateral lower extremity edema/redness. Symptoms have been progressively getting worse for the past few days. Chest pain is slightly left- sided with radiation to his left arm. it is nonexertional. patient was admitted here in November of this year for complete heart block and is status post placement of pacemaker. When he presented to the ER, blood pressure was 186/87, heart rate 102, temperature 101. Labs shows a WBC of 11, hemoglobin 18.1, creatinine 1.26. He is a second lactic acid was 4 with a third 1 being 1.6. Chest x-ray and urinalysis were negative. PMH/Family/Social Past Surgical History Past Surgical Hx: no surgical history Social History Smoking Status: Never smoker Exam/Review of Systems Vital Signs Vitals Vital Signs Date Time Temp Pulse Resp B/P Pulse Ox O2 Delivery O2 Flow Rate FiO2 06/04/17 02:00 97.5 78 18 164/75 98 06/03/17 22:04 Room Air Intake and Output 06/03/17 06/03/17 06/04/17 15:00 23:00 07:00 Intake Total 730 ml Balance 730 ml Exam Constitutional: alert, oriented, well developed Head: atraumatic, normocephalic Eyes: PERRL Respiratory: clear to auscultation, normal air movement Cardiovascular: other (Tachycardic with regular rhythm) Gastrointestinal: non-tender, soft Extremities: normal pulses Labs Result Diagram: 06/04/1752106/03/17 1732 Medications Medications Current Medications Morphine Sulfate (morphine) 2 mg Q4H PRN IV PAIN LEVEL 6-10; Start 06/04/17 at 00:00 Acetaminophen 650 mg 650 mg Q6H PRN PO PAIN AND OR ELEVATED TEMP; Start at 00:00 Cefepime HCl (Maxipime 1gm/50 ml (Pmx)) 50 ml @ 100 mls/hr Q12 IVPB ; Start at 09:00 Aspirin (Halfprin) 81 mg DAILY PO ; Start 06/04/17 at 09:00 Eye Lubricant (Artificial Tears Oph) 1 drop QHS PRN BOTH EYES DRY EYES; Start 06/04/17 at 01:00 Ergocalciferol (Drisdol) 50,000 unit Q7D PO ; Start 06/10/17 at 09:00 Chlorthalidone 25 mg 25 mg DAILY PO ; Start 06/04/17 at 09:00 Vancomycin HCl/ Dextrose (Vancocin/D5W) 500 ml @ 166.667 mls/hr Q24H IVPB ; Start 06/04/17 at 13:00 ZORA HACKETT MD Jun 04, 2017 07:05 Start 06/04/17 at 13:00 ZORA HACKETT MD Jun 04, 2017 07:05
[2017-06-04 07:09] LABS: ALBUMIN 3.3 g/dl (3.3-4.9); ALBUMIN/GLOBULIN RATIO 1.1; BILIRUBIN,INDIRECT 0.8 mg/dl (0-1.1); BILIRUBIN,TOTAL 0.8 mg/dl (0.2-1.3); CALCIUM 9.1 mg/dl (8.4-10.2); CREATININE 1.14 mg/dl (0.61-1.24); MAGNESIUM 1.7 mg/dl (1.7-2.5); PHOSPHORUS 3.8 mg/dl (2.5-4.9); POTASSIUM 3.9 mmol/L (3.5-5.1); TOTAL PROTEIN 6.3 g/dl (6.1-8.1)
[2017-06-04 08:09] LABS: TROPONIN-I 0.034 ng/ml (0.00-0.12)
[2017-06-04 08:10] LABS: CK-MB 1.43 ng/ml (0.0-2.4)
[2017-06-04] MEDS: CEFEPIME 1GM/50 ML (PMX) 50 ML IVPB SCH ×2 (08:47→15:16)
[2017-06-04] MEDS: METOPROLOL 25 MG TAB PO SCH ×2 (08:49→20:33)
[2017-06-04] MEDS: AMLODIPINE 10 MG TAB PO SCH (08:49)
[2017-06-04] MEDS: ACYCLOVIR 800 MG TAB PO SCH ×6 (08:49→20:37)
[2017-06-04] MEDS: BENAZEPRIL 20 MG TAB PO SCH (08:51)
[2017-06-04] MEDS: ASPIRIN (EC) 81 MG TAB PO SCH (08:52)
[2017-06-04] MEDS: CHLORTHALIDONE 25 MG TAB PO SCH (08:52)
[2017-06-04] MEDS: ACETAMINOPHEN 325 MG TAB PO PRN ×2 (09:01→21:31)
[2017-06-04] MEDS: FENOFIBRATE 145 MG TAB PO SCH (09:02)
--- NOTE | 2017-06-04 12:50 | CONS ---
Date/Time of Note Date/Time of Note DATE: 06/04/17 TIME: 12:46 Assessment/Plan Assessment/Plan Chief Complaint/Hosp Course Atypical chest pain appeared to be non-anginal. 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 Mild hypertension under good control Recommendation: Antibiotic management as per internal medicine. Workup and treatment of the fever as per internal medicine. Aspirin was initiated. Beta-damaris was initiated. Serial cardiac enzymes will be obtained to rule out cardiac infarction. Echocardiogram has been ordered already. Will follow once is done. We will do low pacemaker interrogation as an outpatient. Thank you for his referral. I will continue to follow along with you. RAMONA NARAYANAN MD [facility] Problems: Consultation Date/Type/Reason Admit Date/Time Jun 03, 2017 at 21:25 Date of Consultation: Jun 04, 2017 Type of Consultation: cardiology Reason for Consultation chest pain Referring Provider: ZORA HACKETT MD Hx of Present Illness Cardiology consultation Chief complaint fever. All body pain. History of present illness: Thank you for his referral. History was obtained from the patient on review of the old chart. This is a 67-year-old gentleman with history of heart blocks that were permanent pacemaker who came to emergency room with above chief complaint. Patient stated that he had a fever up to 102 on all body pain over the past 1-2 days. He stated he also wanted to have his pacemaker checked because he had missed his follow-up appointment with me. He denies any syncope presyncope. He also complained of intermittent left-sided chest pain. It is worse when he sits. It is not related to exertion or physical activity. It has been stable for a few months to years now. Past medical history: See hypertension history of heart blocks (pacemaker placement Family history no early coronary artery disease reported Allergies no reported drug allergies Medication was reviewed Review of system: As above only Past Surgical History Past Surgical Hx: no surgical history Social History Smoking Status: Never smoker Exam/Review of Systems Vital Signs Vitals Vital Signs Date Time Temp Pulse Resp B/P Pulse Ox O2 Delivery O2 Flow Rate FiO2 06/04/17 12:22 97.5 68 18 139/65 100 06/03/17 22:04 Room Air Intake and Output 06/03/17 06/03/17 06/04/17 15:00 23:00 07:00 Intake Total 730 ml Balance 730 ml Exam General: no acute distress HEENT: NC/AT. pupils are equal. round. NECK: NO JVD. no stridor. CV: RRR. systolic murmur; no gallop or rubs. PULM: no wheezing or rhonchi. GI: SOFT, NT, ND, no rebound or guarding Extremity: trace B/L LE edema. no clubbing. neuro: awake and alert, OX3. Psych: calm and pleasant rectal: deferred : normal male EKG: Normal sinus rhythm with left bundle branch block Results Result Diagram: 06/04/1752106/04/17 05 Results 24 hrs Laboratory Tests Test 06/03/17 17:30 06/03/17 17:32 06/03/17 19:40 06/03/17 21:13 Urine Color YELLOW Urine Clarity CLEAR Urine pH 5.0 Urine Specific [place] 1.020 Urine Ketones NEGATIVE Urine Nitrite NEGATIVE Urine Bilirubin NEGATIVE Urine Urobilinogen NEGATIVE Urine Leukocyte Esterase NEGATIVE Urine Microscopic RBC 1 Urine Microscopic WBC 0 Urine Hemoglobin 1+ H Urine Glucose NEGATIVE Urine Total Protein NEGATIVE White Blood Count 11.6 #H Red Blood Count 6.37 H Hemoglobin 18.1 H Hematocrit 52.4 H Mean Corpuscular Volume 82.3 Mean Corpuscular Hemoglobin 28.4 L Mean Corpuscular Hemoglobin Concent 34.5 Red Cell Distribution Width 13.6 Platelet Count 135 L Mean Platelet Volume 9.5 Neutrophils % 74.6 Lymphocytes % 15.4 Monocytes % 7.3 Eosinophils % 1.8 Basophils % 0.3 Nucleated Red Blood Cells % 0.0 Neutrophils # 8.7 H Lymphocytes # 1.8 Monocytes # 0.9 Eosinophils # 0.2 Basophils # 0.0 Nucleated Red Blood Cells # 0.0 Prothrombin Time 12.6 Prothrombin Time Ratio 1.0 INR International Normalized Ratio 0.93 Activated Partial Thromboplast Time 27.3 Sodium Level 139 Potassium Level 3.9 Chloride Level 101 Carbon Dioxide Level 28 Anion Gap 14 Blood Urea Nitrogen 28 H Creatinine 1.26 H Glucose Level 98 Lactic Acid Level 0.8 4.0 *H 1.6 Calcium Level 9.3 Total Bilirubin 0.9 Direct Bilirubin 0.00 Indirect Bilirubin 0.9 Aspartate Amino Transf (AST/SGOT) 32 Alanine Aminotransferase (ALT/SGPT) 45 Alkaline Phosphatase 83 Troponin I 0.027 B-Type Natriuretic Peptide 191 H Total Protein 7.7 Albumin 4.0 Globulin 3.70 H Albumin/Globulin Ratio 1.08 Lipase 205 Test 06/04/17 05:22 06/04/17 07:21 White Blood Count 8.1 # Red Blood Count 5.89 Hemoglobin 16.8 Hematocrit 49.2 Mean Corpuscular Volume 83.5 Mean Corpuscular Hemoglobin 28.5 L Mean Corpuscular Hemoglobin Concent 34.1 Red Cell Distribution Width 12.9 Platelet Count 122 L Mean Platelet Volume 9.3 Neutrophils % 57.0 Lymphocytes % 27.1 Monocytes % 8.0 Eosinophils % 6.9 Basophils % 0.5 Nucleated Red Blood Cells % 0.0 Neutrophils # 4.6 Lymphocytes # 2.2 Monocytes # 0.7 Eosinophils # 0.6 H Basophils # 0.0 Nucleated Red Blood Cells # 0.0 Sodium Level 142 Potassium Level 3.9 Chloride Level 105 Carbon Dioxide Level 30 Anion Gap 11 Blood Urea Nitrogen 23 H Creatinine 1.14 Glucose Level 94 Calcium Level 9.1 Phosphorus Level 3.8 Magnesium Level 1.7 Total Bilirubin 0.8 Direct Bilirubin 0.00 Indirect Bilirubin 0.8 Aspartate Amino Transf (AST/SGOT) 32 Alanine Aminotransferase (ALT/SGPT) 44 Alkaline Phosphatase 58 Total Protein 6.3 # Albumin 3.3 Globulin 3.00 Albumin/Globulin Ratio 1.10 Creatine Kinase 54 Creatine Kinase Index 2.6 Creatinine Kinase MB (Mass) 1.43 Troponin I 0.034 Medications Medications Current Medications Morphine Sulfate (morphine) 2 mg Q4H PRN IV PAIN LEVEL 6-10; Start 06/04/17 at 00:00 Acetaminophen 650 mg 650 mg Q6H PRN PO PAIN AND OR ELEVATED TEMP Last administered on 06/04/17 09:01; Admin Dose 650 MG; Start 06/04/17 at 00:00 Cefepime HCl (Maxipime 1gm/50 ml (Pmx)) 50 ml @ 100 mls/hr Q12 IVPB Last administered on 06/04/17 08:47; Admin Dose 100 MLS/HR; Start 06/04/17 at 09: 00 Aspirin (Halfprin) 81 mg DAILY PO Last administered on 06/04/17 08:52; Admin Dose 81 MG; Start 06/04/17 at 09:00 Eye Lubricant (Artificial Tears Oph) 1 drop QHS PRN BOTH EYES DRY EYES; Start 06/04/17 at 01:00 Ergocalciferol (Drisdol) 50,000 unit Q7D PO ; Start 06/10/17 at 09:00 Chlorthalidone 25 mg 25 mg DAILY PO Last administered on 06/04/17 08:52; Admin Dose 25 MG; Start 06/04/17 at 09:00 Vancomycin HCl/ Dextrose (Vancocin/D5W) 500 ml @ 166.667 mls/hr Q24H IVPB ; Start 06/04/17 at 13:00 Amlodipine Besylate (Norvasc) 10 mg DAILY PO Last administered on 06/04/17 08 :49; Admin Dose 10 MG; Start 06/04/17 at 09:00 Benazepril HCl (Lotensin) 20 mg DAILY PO Last administered on 06/04/17 08:51 ; Admin Dose 20 MG; Start 06/04/17 at 09:00 Metoprolol Tartrate (Lopressor) 25 mg BID PO Last administered on 06/04/17 08 :49; Admin Dose 25 MG; Start 06/04/17 at 09:00 Fenofibrate (Tricor) 145 mg DAILY PO Last administered on 06/04/17 09:02; Admin Dose 145 MG; Start 06/04/17 at 09:00 RAMONA NARAYANAN MD Jun 04, 2017 12:50
--- NOTE | 2017-06-04 14:40 | RADRPT ---
PROCEDURE: US bilateral lower extremity veins. CLINICAL INDICATION: Bilateral leg pain and swelling. TECHNIQUE: Multiple longitudinal and transverse images of the bilateral lower extremity veins were obtained with greenfield scale and color Doppler imaging. The common femoral vein, femoral vein, and popl iteal vein were evaluated. 2D grayscale measurements with compression sonography, color Doppler, and pulsed Doppler with augmentation. COMPARISON: No prior studies are available for comparison. FINDINGS: The bilateral common femoral, femoral and popliteal veins are normally compressible throughout. Col or flow demonstrates normal filling of the vessels. Normal waveforms are visualized and there is no rmal response to augmentation. IMPRESSION: 1. No evidence of deep vein thrombosis involving either lower extremity. RPTAT: QQ .Hilton Peterson MD, MD Date Time Electronically viewed and signed by .Hilton Peterson MD, on 06/04/2017 14:39 .R/
[2017-06-04 15:02] LABS: TROPONIN-I 0.023 ng/ml (0.00-0.12)
[2017-06-04 15:03] LABS: CK-MB 1.5 ng/ml (0.0-2.4)
[2017-06-04] MEDS: VANCOMYCIN 1.5 GM in DEXTROSE 5% 500 ML IVPB SCH (16:41)
--- NOTE | 2017-06-04 16:57 | CONS ---
DATE OF ADMISSION: 06/03/2017 DATE OF CONSULTATION: 06/04/2017 TYPE OF CONSULTATION: Infectious Disease. REASON FOR CONSULTATION: Antibiotic management. HISTORY OF PRESENT ILLNESS: Rachel Sandoval is a 67-year-old male with numerous problems who present ed with left-sided chest pain and is being seen for fever and antibiotic management. His past probl ems include: 1. Hypertension. 2. Complete heart block status post pacemaker placement with left bundle branch block. 3. Facial suit shingles. Acutely he presented to the ER with left-sided chest pain of 2 months' duration with radiation to le ft arm, and bilateral lower extremity redness and edema. The patient has been getting worse over th e last few days. Chest pain is slightly left side with radiation to his left arm. It is nonexertio nal. In the emergency room, his blood pressure was 186/87, heart rate 102, temperature 101 and whit e count of 11, hemoglobin 18.1, creatinine 1.26, lactic acid was 4. That was the second lactic acid , the third one was down to 1.6. Chest x-ray negative. Urinalysis negative. PAST SURGICAL HISTORY: Status post pacemaker placement. SOCIAL HISTORY: Does not smoke, drink or abuse drugs. ALLERGIES: NONE TO PENICILLIN, SULFA OR FOODS. MEDICATIONS: Per chart. REVIEW OF SYSTEMS: As per HPI. PHYSICAL EXAMINATION: GENERAL: The patient is an elderly ill appearing male who is awake, responsive, in no acute distres s. VITAL SIGNS: Stable. He is afebrile. SKIN: Without generalized rash. HEENT: Within normal limits. NECK: Supple. LYMPH NODES: None palpable. CHEST: Decreased breath sounds at the bases. HEART: Tachycardic, regular rhythm. ABDOMEN: Soft, nontender, without organosplenomegaly or masses. EXTREMITIES: Without cyanosis, clubbing, or edema. RECTAL AND GENITAL: Deferred. NEUROLOGIC: No focal neurological abnormalities. ANCILLARY LABORATORY DATA: Mentioned previously, he had a white count of 11. On the 24th, his whit e count was 8.1, H and H is 16.8 and 49.2, platelet count 122,000. BUN and creatinine 28/1.26. Ran dom glucose of 98. Microbiology: No growth after 24 hours. Influenza A and B negative. IMPRESSION AND PLAN: The patient was started on vancomycin and cefepime. He is on vancomycin alone for his lower extremity cellulitis. He has bilateral lower extremity cellulitis accounting for his fever and tachycardia. We will continue him on vancomycin and he is also on cefepime. I will dict ate my findings to the hospitalist. Of note is the fact that he is also on acyclovir 800 mg 5 times a day. Dictated By: MARY ANN BOWDEN MD, JD/LORENA Conf#: [id number] DID#: [id number]
[2017-06-04] MEDS ORDERED: ACYCLOVIR 200 MG CAP PO ONE (21:30)
[2017-06-05] VITALS (10 sets, daily range): BP systolic 121–144; BP diastolic 62–67; PULSE 59–76; RESP 17–19
[2017-06-05 07:35] LABS: BASOPHILS % 0.6 % (0.0-2.0); EOSINOPHILS % 14.4 % (0.0-7.0); HEMATOCRIT 48.6 % (42.0-52.0); HEMOGLOBIN 17.2 g/dl (14.0-18.0); LYMPHOCYTES # 2.9 10^3/ul (0.8-2.9); LYMPHOCYTES % 39.9 % (15.0-51.0); MEAN CORPUSCULAR HEMOGLOBIN 29.1 pg (29.0-33.0); MEAN CORPUSCULAR HGB CONC 35.4 g/dl (32.0-37.0); MEAN CORPUSCULAR VOLUME 82.1 fl (82.0-101.0); MEAN PLATELET VOLUME 9.4 fl (7.4-10.4); MONOCYTE # 0.7 10^3/ul (0.3-0.9); MONOCYTES % 10.2 % (0.0-11.0); NEUTROPHIL # 2.5 10^3/ul (1.6-7.5); NEUTROPHILS % 34.2 % (39.0-77.0); PLATELET COUNT 128 10^3/UL (140-415); POSITIVE DIFF @See below; RED BLOOD COUNT 5.92 10^6/ul (4.70-6.10); RED CELL DISTRIBUTION WIDTH 13.2 % (11.5-14.5); WHITE BLOOD COUNT 7.2 10^3/ul (4.8-10.8)
[2017-06-05] MEDS: ACYCLOVIR 800 MG TAB PO SCH ×2 (09:00→11:07)
[2017-06-05 09:22] LABS: ALBUMIN 3.6 g/dl (3.3-4.9); ALBUMIN/GLOBULIN RATIO 1.09; BILIRUBIN,INDIRECT 0.7 mg/dl (0-1.1); BILIRUBIN,TOTAL 0.7 mg/dl (0.2-1.3); CALCIUM 9.5 mg/dl (8.4-10.2); CREATININE 1.11 mg/dl (0.61-1.24); POTASSIUM 4.1 mmol/L (3.5-5.1); TOTAL PROTEIN 6.9 g/dl (6.1-8.1)
[2017-06-05] MEDS: CEFEPIME 1GM/50 ML (PMX) 50 ML IVPB SCH ×2 (09:27→20:58)
[2017-06-05] MEDS: CHLORTHALIDONE 25 MG TAB PO SCH (09:29)
[2017-06-05] MEDS: AMLODIPINE 10 MG TAB PO SCH (09:29)
[2017-06-05] MEDS: ASPIRIN (EC) 81 MG TAB PO SCH (09:29)
[2017-06-05] MEDS: FENOFIBRATE 145 MG TAB PO SCH (09:30)
[2017-06-05] MEDS: METOPROLOL 25 MG TAB PO SCH ×2 (09:30→20:58)
[2017-06-05] MEDS: BENAZEPRIL 20 MG TAB PO SCH (09:30)
[2017-06-05 11:45] LABS: CHOL/HDL RATIO 4.9 RATIO; MAGNESIUM 1.7 mg/dl (1.7-2.5); PHOSPHORUS 3.4 mg/dl (2.5-4.9)
[2017-06-05] MEDS: VANCOMYCIN 1.5 GM in DEXTROSE 5% 500 ML IVPB SCH (12:21)
--- NOTE | 2017-06-05 13:41 | PN ---
Date/Time of Note Date/Time of Note DATE: 06/05/17 TIME: 13:39 Assessment/Plan VTE Prophylaxis VTE Prophylaxis Intervention: LMWH Lines/Catheters IV [facility]from [facility] Saline Lock Assessment/Plan Chief Complaint/Hosp Course 1. Chest pain. -ACS ruled out. -Cardiology following. 2. Sepsis secondary to lower extremity cellulitis. -On antimicrobials as per infectious diseases. 3. History of third degree heart block. -Status post permanent pacemaker placement. -Pacemaker interrogation as outpatient. 4. Essential hypertension. -Continue antihypertensives. 5. Dyslipidemia. -Low cholesterol diet. 6. Acute kidney injury. -Resolved. 7. History of shingles on the left eye. 8. Fluids, electrolytes, and nutrition. -Low-cholesterol diet. 9. DVT prophylaxis. -Subcutaneous Lovenox. 10. Plan. -Continue antibiotics as per infectious diseases. -Await clearance from consultants before discharge. Case discussed with Dr. Abdalla. Problems: Subjective 24 Hr Interval Summary Free Text/Dictation Denies any chest pain. Exam/Review of Systems Vital Signs Vitals Vital Signs Date Time Temp Pulse Resp B/P Pulse Ox O2 Delivery O2 Flow Rate FiO2 06/05/17 12:25 97.8 60 17 140/66 98 06/03/17 22:04 Room Air Intake and Output 06/04/17 06/04/17 06/05/17 15:00 23:00 07:00 Intake Total 450 ml 420 ml 900 ml Output Total 400 ml Balance 50 ml 420 ml 900 ml Exam General: Adequately build 67 year-old male lying in bed in no apparent distress. HEENT: Normocephalic, atraumatic. Eyes: Anicteric sclerae, conjunctivae clear. ENT: Nasal septum midline, oral mucosa moist. Neck supple, no JVD noticed. Respiratory: Bilaterally clear breath sounds. No use of accessory muscles of respiration. No adventitious breath sounds. Cardiovascular: S1, S2 heard. Regular rate and rhythm. Abdomen: Soft, nontender, and nondistended. Bowel sounds positive in all 4 quadrants. Genitourinary: Deferred. Extremities: No cyanosis, no clubbing. Peripheral pulses palpable. Bilateral lower extremity 1+ edema. B/L lower extremity erythema and tenderness. Neurologic: Cranial nerves II through XII grossly intact. The patient is awake, alert, and oriented. Results Result Diagram: 06/05/1716 06/05/17 0716 Results 24 hrs Laboratory Tests Test 06/04/17 14:16 06/05/17 07:16 Creatine Kinase 50 Creatine Kinase Index 3.0 Creatinine Kinase MB (Mass) 1.50 Troponin I 0.023 White Blood Count 7.2 Red Blood Count 5.92 Hemoglobin 17.2 Hematocrit 48.6 Mean Corpuscular Volume 82.1 Mean Corpuscular Hemoglobin 29.1 Mean Corpuscular Hemoglobin Concent 35.4 Red Cell Distribution Width 13.2 Platelet Count 128 L Mean Platelet Volume 9.4 Neutrophils % 34.2 L Lymphocytes % 39.9 Monocytes % 10.2 Eosinophils % 14.4 H Basophils % 0.6 Nucleated Red Blood Cells % 0.0 Neutrophils # 2.5 Lymphocytes # 2.9 Monocytes # 0.7 Eosinophils # 1.0 H Basophils # 0.0 Nucleated Red Blood Cells # 0.0 Sodium Level 141 Potassium Level 4.1 Chloride Level 103 Carbon Dioxide Level 30 Anion Gap 12 Blood Urea Nitrogen 18 Creatinine 1.11 Glucose Level 96 Calcium Level 9.5 Phosphorus Level 3.4 Magnesium Level 1.7 Total Bilirubin 0.7 Direct Bilirubin 0.00 Indirect Bilirubin 0.7 Aspartate Amino Transf (AST/SGOT) 33 Alanine Aminotransferase (ALT/SGPT) 45 Alkaline Phosphatase 63 Total Protein 6.9 Albumin 3.6 Globulin 3.30 H Albumin/Globulin Ratio 1.09 Triglycerides Level 175 H Cholesterol Level 158 LDL Cholesterol, Calculated 91 HDL Cholesterol 32 Cholesterol/HDL Ratio 4.9 Medications Medications Current Medications Morphine Sulfate (morphine) 2 mg Q4H PRN IV PAIN LEVEL 6-10; Start 06/04/17 at 00:00 Acetaminophen 650 mg 650 mg Q6H PRN PO PAIN AND OR ELEVATED TEMP Last administered on 06/04/17 21:31; Admin Dose 650 MG; Start 06/04/17 at 00:00 Cefepime HCl (Maxipime 1gm/50 ml (Pmx)) 50 ml @ 100 mls/hr Q12 IVPB Last administered on 06/05/17 09:27; Admin Dose 100 MLS/HR; Start 06/04/17 at 09: 00 Aspirin (Halfprin) 81 mg DAILY PO Last administered on 06/05/17 09:29; Admin Dose 81 MG; Start 06/04/17 at 09:00 Eye Lubricant (Artificial Tears Oph) 1 drop QHS PRN BOTH EYES DRY EYES; Start 06/04/17 at 01:00 Ergocalciferol (Drisdol) 50,000 unit Q7D PO ; Start 06/10/17 at 09:00 Chlorthalidone 25 mg 25 mg DAILY PO Last administered on 06/05/17 09:29; Admin Dose 25 MG; Start 06/04/17 at 09:00 Vancomycin HCl/ Dextrose (Vancocin/D5W) 500 ml @ 166.667 mls/hr Q24H IVPB Last administered on 06/05/17 12:21; Admin Dose 166.667 MLS/HR; Start at 13:00 Amlodipine Besylate (Norvasc) 10 mg DAILY PO Last administered on 06/05/17 09 :29; Admin Dose 10 MG; Start 06/04/17 at 09:00 Benazepril HCl (Lotensin) 20 mg DAILY PO Last administered on 06/05/17 09:30 ; Admin Dose 20 MG; Start 06/04/17 at 09:00 Metoprolol Tartrate (Lopressor) 25 mg BID PO Last administered on 06/05/17 09 :30; Admin Dose 25 MG; Start 06/04/17 at 09:00 Fenofibrate (Tricor) 145 mg DAILY PO Last administered on 06/05/17 09:30; Admin Dose 145 MG; Start 06/04/17 at 09:00 Miscellaneous Information (*Rx Drug Level Order Reminder*) VANCOMYCIN TROUGH ON @ 12PM ONCE ONCE XX ; Start 06/06/17 at 12:00; Stop 06/06/17 at 12:01 SHANE HASTINGS NP Jun 05, 2017 13:41
--- NOTE | 2017-06-05 14:00 | PN ---
DATE: 06/05/2017 SUBJECTIVE: No acute changes. The patient is awake, looks comfortable, no fevers overnight. LABORATORY DATA: WBC 7.2, platelets 128, neutrophils 34.2, no bands. BUN 18, creatinine 1.11. MICROBIOLOGY: Blood, urine culture and influenza swab negative. ANTIMICROBIALS: The patient is on: 1. Vancomycin. 2. Cefepime. DIAGNOSTICS: Chest x-ray on admission revealed unremarkable chest radiograph with atherosclerosis a nd permanent pacemaker. PHYSICAL EXAMINATION: GENERAL: Well-developed, elderly man in no distress. HEENT: Head atraumatic, normocephalic. Sclerae anicteric. Buccal mucosa dry. NECK: Supple. CHEST: Rise symmetrical. Breath sounds clear. HEART: S1, S2. ABDOMEN: Soft, bowel tones present. EXTREMITIES: Bilateral lower extremity erythema and edema, left more than right. ASSESSMENT: 1. Systemic inflammatory response syndrome with fevers on admission and leukocytosis secondary to # 2. 2. Bilateral lower extremity cellulitis. 3. Chest pain. 4. Acute kidney injury. 5. Hypertension. PLAN: The patient remains stable. We will continue him on vancomycin, change cefepime to Rocephin. Keep lower extremities elevated and wait for clinical improvement. Follow cardiology recommendati ons. Dictated By: MUNDO ALVAREZ HAND I CUTTER for MARY ANN BOWDEN MD NI/NTS Conf#: [id number] DID#: [id number] CC: ZORA HACKETT MD; MARY ANN BOWDEN MD;*EndCC*
[2017-06-05] MEDS: ENOXAPARIN 40 MG/0.4 ML SYG SC SCH (14:25)
--- NOTE | 2017-06-05 17:15 | RADRPT ---
Echocardiogram Report Patient Name: NEELIMA MATA Gender: Male Date: 1950 Study Date: 05-Jun-2017 Chute Operator: Jani [facility] Location: 55[address] Ref. Physician: ZORA HACKETT Quality: Adequate Procedures: Transthoracic echocardiogram with complete 2D, M-Mode, and doppler examination. Indications: Congestive Heart Failure. 2D/M Mode Doppler Measurement Value Normal Ranges Measurement Value Normal Ranges LVIDd 2D 3.0 3.5 - 5.6 cm AV Peak Robert 1.2 m/sec LVIDs 2D 2.0 2.1 - 4.1 cm AV Peak PG 6.0 mmHg FS 2D 33.9 % LVOT Peak Robert 1.1 m/sec LVPWd 2D 1.5 0.6 - 1.1 cm LVOT Peak PG 5.0 mmHg IVSd 2D 1.5 0.6 - 1.1 cm MV E Peak Robert 0.9 m/sec IVS/LVPW 2D 1.0 MV A Peak Robert 1.0 m/sec AoR Diam 2D 3.0 2.0 - 3.7 cm MV E/A 0.8 LA/Ao 2D 1 0 - 1 MV Decel Time 232 msec EDV 2D 27.3 cm3 MV E/A 0.8 ESV 2D 7.9 cm3 TR Peak Robert 2.5 m/sec LA Dimen 2D 3.7 2.3 - 4.0 cm TR Peak PG 25.0 mmHg RVSP 35.0 mmHg Findings Left Ventricle: Normal left ventricular systolic function. Normal left ventricular cavity size. Moderate concentric left ventricular hypertrophy. Ejection fraction is visually estimated at 65 %. Tissue Doppler/Mitral Doppler indices are consistent with impaired relaxation (Stage I diastolic dysfunction). Right Ventricle: Normal right ventricular size. Normal right ventricular systolic function. Left Atrium: The left atrium is normal in size. Right Atrium: The right atrium is normal in size. Mitral Valve: Mild mitral leaflet calcification. Mild mitral annular calcification. Trace mitral regurgitation. Aortic Valve: No significant aortic stenosis. Aortic cusps appear mildly calcified. Mild aortic valve regurgitation. Tricuspid Valve: Normal appearance of the tricuspid valve. Estimated peak PA systolic pressure 35 mmHg. There is mild tricuspid regurgitation. Pulmonic Valve: Pulmonic valve not well visualized. There is trace pulmonic regurgitation. Pericardium: Normal pericardium with no significant pericardial effusion. Aorta: Normal aortic root. IVC: Normal size and normal respiratory collapse consistent with normal right atrial pressure. Conclusions 1.Normal left ventricular systolic function. Normal left ventricular cavity size. Moderate concentric left ventricular hypertrophy. Ejection fraction is visually estimated at 65 %. Tissue Doppler/Mitral Doppler indices are consistent with impaired relaxation (Stage I diastolic dysfunction). 2.Mild mitral leaflet calcification. Mild mitral annular calcification. Trace mitral regurgitation. 3.No significant aortic stenosis. Aortic cusps appear mildly calcified. Mild aortic valve regurgitation. 4.Normal appearance of the tricuspid valve. Estimated peak PA systolic pressure 35 mmHg. There is mild tricuspid regurgitation. Electronically Signed By: Yair Leyva 05-Jun-2017 17:14:25 -0800 Patient Name: NEELIMA MATA Study Date: 05-Jun-2017 [id number]
--- NOTE | 2017-06-05 18:25 | CONS ---
Date/Time of Note Date/Time of Note DATE: 06/05/17 TIME: 18:22 Consult Date/Type/Reason Admit Date/Time Jun 03, 2017 at 21:25 Initial Consult Date 06/04/17 Type of Consultation: cardiology Ordering Provider: ZORA HACKETT MD Subjective card follow-up note Subjective: Case discussed with the staff and rhythm strip was reviewed patient remains sinus rhythm. He denies any chest pain or pressure to me. O: General: no acute distress HEENT: NC/AT. pupils are equal. round. NECK: NO JVD. no stridor. CV: RRR. systolic murmur; no gallop or rubs. PULM: no wheezing or rhonchi. GI: SOFT, NT, ND, no rebound or guarding Extremity: + B/L LE edema. no clubbing. neuro: awake and alert, OX3. Psych: calm and pleasant rectal: deferred : normal male EKG: Normal sinus rhythm with left bundle branch block Echo reviewed 1. Normal left ventricular systolic function. Normal left ventricular cavity size. Moderate concentric left ventricular hypertrophy. Ejection fraction is visually estimated at 65 %. Tissue Doppler/Mitral Doppler indices are consistent with impaired relaxation (Stage I diastolic dysfunction). 2. Mild mitral leaflet calcification. Mild mitral annular calcification. Trace mitral regurgitation. 3. No significant aortic stenosis. Aortic cusps appear mildly calcified. Mild aortic valve regurgitation. 4. Normal appearance of the tricuspid valve. Estimated peak PA systolic pressure 35 mmHg. There is mild tricuspid regurgitation. Objective Vital Signs Date Time Temp Pulse Resp B/P Pulse Ox O2 Delivery O2 Flow Rate FiO2 06/05/17 16:13 97.8 64 17 144/67 99 06/03/17 22:04 Room Air Intake and Output 06/04/17 06/04/17 06/05/17 15:00 23:00 07:00 Intake Total 450 ml 420 ml 900 ml Output Total 400 ml Balance 50 ml 420 ml 900 ml Results/Medications Result Diagram: 06/05/17 0716 06/05/17 0716 Results 24 hrs Laboratory Tests Test 06/05/17 07:16 White Blood Count 7.2 Red Blood Count 5.92 Hemoglobin 17.2 Hematocrit 48.6 Mean Corpuscular Volume 82.1 Mean Corpuscular Hemoglobin 29.1 Mean Corpuscular Hemoglobin Concent 35.4 Red Cell Distribution Width 13.2 Platelet Count 128 L Mean Platelet Volume 9.4 Neutrophils % 34.2 L Lymphocytes % 39.9 Monocytes % 10.2 Eosinophils % 14.4 H Basophils % 0.6 Nucleated Red Blood Cells % 0.0 Neutrophils # 2.5 Lymphocytes # 2.9 Monocytes # 0.7 Eosinophils # 1.0 H Basophils # 0.0 Nucleated Red Blood Cells # 0.0 Sodium Level 141 Potassium Level 4.1 Chloride Level 103 Carbon Dioxide Level 30 Anion Gap 12 Blood Urea Nitrogen 18 Creatinine 1.11 Glucose Level 96 Calcium Level 9.5 Phosphorus Level 3.4 Magnesium Level 1.7 Total Bilirubin 0.7 Direct Bilirubin 0.00 Indirect Bilirubin 0.7 Aspartate Amino Transf (AST/SGOT) 33 Alanine Aminotransferase (ALT/SGPT) 45 Alkaline Phosphatase 63 Total Protein 6.9 Albumin 3.6 Globulin 3.30 H Albumin/Globulin Ratio 1.09 Triglycerides Level 175 H Cholesterol Level 158 LDL Cholesterol, Calculated 91 HDL Cholesterol 32 Cholesterol/HDL Ratio 4.9 Medications Current Medications Morphine Sulfate (morphine) 2 mg Q4H PRN IV PAIN LEVEL 6-10; Start 06/04/17 at 00:00 Acetaminophen 650 mg 650 mg Q6H PRN PO PAIN AND OR ELEVATED TEMP Last administered on 06/04/17 21:31; Admin Dose 650 MG; Start 06/04/17 at 00:00 Cefepime HCl (Maxipime 1gm/50 ml (Pmx)) 50 ml @ 100 mls/hr Q12 IVPB Last administered on 06/05/17 09:27; Admin Dose 100 MLS/HR; Start 06/04/17 at 09: 00 Aspirin (Halfprin) 81 mg DAILY PO Last administered on 06/05/17 09:29; Admin Dose 81 MG; Start 06/04/17 at 09:00 Eye Lubricant (Artificial Tears Oph) 1 drop QHS PRN BOTH EYES DRY EYES; Start 06/04/17 at 01:00 Ergocalciferol (Drisdol) 50,000 unit Q7D PO ; Start 06/10/17 at 09:00 Chlorthalidone 25 mg 25 mg DAILY PO Last administered on 06/05/17 09:29; Admin Dose 25 MG; Start 06/04/17 at 09:00 Vancomycin HCl/ Dextrose (Vancocin/D5W) 500 ml @ 166.667 mls/hr Q24H IVPB Last administered on 06/05/17 12:21; Admin Dose 166.667 MLS/HR; Start at 13:00 Amlodipine Besylate (Norvasc) 10 mg DAILY PO Last administered on 06/05/17 09 :29; Admin Dose 10 MG; Start 06/04/17 at 09:00 Benazepril HCl (Lotensin) 20 mg DAILY PO Last administered on 06/05/17 09:30 ; Admin Dose 20 MG; Start 06/04/17 at 09:00 Metoprolol Tartrate (Lopressor) 25 mg BID PO Last administered on 06/05/17 09 :30; Admin Dose 25 MG; Start 06/04/17 at 09:00 Fenofibrate (Tricor) 145 mg DAILY PO Last administered on 06/05/17 09:30; Admin Dose 145 MG; Start 06/04/17 at 09:00 Miscellaneous Information (*Rx Drug Level Order Reminder*) VANCOMYCIN TROUGH ON @ 12PM ONCE ONCE XX ; Start 06/06/17 at 12:00; Stop 06/06/17 at 12:01 Enoxaparin Sodium (Lovenox) 40 mg DAILY SC Last administered on 06/05/17 14: 25; Admin Dose 40 MG; Start 06/05/17 at 14:00 Assessment/Plan Chief Complaint/Hosp Course Atypical chest pain appeared to be non-anginal. we will rule out for myocardial infarction Fever lower extremity cellulitis Abnormal EKG with left bundle branch block History of heart blocks at a permanent pacemaker with no evidence of any malfunction currently. Mild hypertension under good control Recommendation: Antibiotic management as per internal medicine. Workup and treatment of the fever as per internal medicine. Aspirin was initiated. Beta-damaris was initiated. Serial cardiac enzymes showed no evidence of myocardial infarction. Echocardiogram acute We will do low pacemaker interrogation as an outpatient. Thank you for his referral. I will continue to follow along with you. RAMONA NARAYNAAN MD [facility] Problems: RAMONA NARAYANAN MD Jun 05, 2017 18:25
[2017-06-06] VITALS (10 sets, daily range): BP systolic 120–157; BP diastolic 63–73; PULSE 60–71; RESP 16–18
[2017-06-06 07:45] LABS: BASOPHILS % 0.4 % (0.0-2.0); EOSINOPHILS # 1.1 10^3/ul (0.0-0.5); HEMATOCRIT 46.7 % (42.0-52.0); HEMOGLOBIN 16.5 g/dl (14.0-18.0); LYMPHOCYTES # 2.6 10^3/ul (0.8-2.9); LYMPHOCYTES % 37.5 % (15.0-51.0); MEAN CORPUSCULAR HEMOGLOBIN 28.9 pg (29.0-33.0); MEAN CORPUSCULAR HGB CONC 35.3 g/dl (32.0-37.0); MEAN CORPUSCULAR VOLUME 81.9 fl (82.0-101.0); MEAN PLATELET VOLUME 9.4 fl (7.4-10.4); MONOCYTE # 0.7 10^3/ul (0.3-0.9); MONOCYTES % 9.4 % (0.0-11.0); NEUTROPHIL # 2.5 10^3/ul (1.6-7.5); NEUTROPHILS % 36.4 % (39.0-77.0); PLATELET COUNT 148 10^3/UL (140-415); RED CELL DISTRIBUTION WIDTH 13.2 % (11.5-14.5); WHITE BLOOD COUNT 6.9 10^3/ul (4.8-10.8)
[2017-06-06 07:47] LABS: EOSINOPHILS % 15.7 % (0.0-7.0)
--- NOTE | 2017-06-06 07:51 | CONS ---
Date/Time of Note Date/Time of Note DATE: 06/06/17 TIME: 07:50 Consult Date/Type/Reason Admit Date/Time Jun 03, 2017 at 21:25 Initial Consult Date 06/04/17 Type of Consultation: cardiology Ordering Provider: ZORA HACKETT MD Subjective card follow-up note Subjective: Case discussed with the staff and rhythm strip was reviewed patient remains sinus rhythm. He denies any chest pain or pressure to me. no leg pain O: General: no acute distress HEENT: NC/AT. pupils are equal. round. NECK: NO JVD. no stridor. CV: RRR. systolic murmur; no gallop or rubs. PULM: no wheezing or rhonchi. GI: SOFT, NT, ND, no rebound or guarding Extremity: + B/L LE edema. no clubbing. neuro: awake and alert, OX3. Psych: calm and pleasant rectal: deferred : normal male EKG: Normal sinus rhythm with left bundle branch block Echo reviewed 1. Normal left ventricular systolic function. Normal left ventricular cavity size. Moderate concentric left ventricular hypertrophy. Ejection fraction is visually estimated at 65 %. Tissue Doppler/Mitral Doppler indices are consistent with impaired relaxation (Stage I diastolic dysfunction). 2. Mild mitral leaflet calcification. Mild mitral annular calcification. Trace mitral regurgitation. 3. No significant aortic stenosis. Aortic cusps appear mildly calcified. Mild aortic valve regurgitation. 4. Normal appearance of the tricuspid valve. Estimated peak PA systolic pressure 35 mmHg. There is mild tricuspid regurgitation. Objective Vital Signs Date Time Temp Pulse Resp B/P Pulse Ox O2 Delivery O2 Flow Rate FiO2 06/06/17 07:44 97.5 60 16 135/63 95 06/03/17 22:04 Room Air Intake and Output 06/05/17 06/05/17 06/06/17 15:00 23:00 07:00 Intake Total 1050 ml 550 ml Balance 1050 ml 550 ml Results/Medications Result Diagram: 06/06/17 0709 06/05/17 0716 Results 24 hrs Laboratory Tests Test 06/06/17 07:09 White Blood Count 6.9 Red Blood Count 5.70 Hemoglobin 16.5 Hematocrit 46.7 Mean Corpuscular Volume 81.9 L Mean Corpuscular Hemoglobin 28.9 L Mean Corpuscular Hemoglobin Concent 35.3 Red Cell Distribution Width 13.2 Platelet Count 148 Mean Platelet Volume 9.4 Neutrophils % 36.4 L Lymphocytes % 37.5 Monocytes % 9.4 Eosinophils % 15.7 H Basophils % 0.4 Nucleated Red Blood Cells % 0.0 Neutrophils # 2.5 Lymphocytes # 2.6 Monocytes # 0.7 Eosinophils # 1.1 H Basophils # 0.0 Nucleated Red Blood Cells # 0.0 Medications Current Medications Morphine Sulfate (morphine) 2 mg Q4H PRN IV PAIN LEVEL 6-10; Start 06/04/17 at 00:00 Acetaminophen 650 mg 650 mg Q6H PRN PO PAIN AND OR ELEVATED TEMP Last administered on 06/04/17 21:31; Admin Dose 650 MG; Start 06/04/17 at 00:00 Cefepime HCl (Maxipime 1gm/50 ml (Pmx)) 50 ml @ 100 mls/hr Q12 IVPB Last administered on 06/05/17 20:58; Admin Dose 100 MLS/HR; Start 06/04/17 at 09: 00 Aspirin (Halfprin) 81 mg DAILY PO Last administered on 06/05/17 09:29; Admin Dose 81 MG; Start 06/04/17 at 09:00 Eye Lubricant (Artificial Tears Oph) 1 drop QHS PRN BOTH EYES DRY EYES; Start 06/04/17 at 01:00 Ergocalciferol (Drisdol) 50,000 unit Q7D PO ; Start 06/10/17 at 09:00 Chlorthalidone 25 mg 25 mg DAILY PO Last administered on 06/05/17 09:29; Admin Dose 25 MG; Start 06/04/17 at 09:00 Vancomycin HCl/ Dextrose (Vancocin/D5W) 500 ml @ 166.667 mls/hr Q24H IVPB Last administered on 06/05/17 12:21; Admin Dose 166.667 MLS/HR; Start at 13:00 Amlodipine Besylate (Norvasc) 10 mg DAILY PO Last administered on 06/05/17 09 :29; Admin Dose 10 MG; Start 06/04/17 at 09:00 Benazepril HCl (Lotensin) 20 mg DAILY PO Last administered on 06/05/17 09:30 ; Admin Dose 20 MG; Start 06/04/17 at 09:00 Metoprolol Tartrate (Lopressor) 25 mg BID PO Last administered on 06/05/17 20 :58; Admin Dose 25 MG; Start 06/04/17 at 09:00 Fenofibrate (Tricor) 145 mg DAILY PO Last administered on 06/05/17 09:30; Admin Dose 145 MG; Start 06/04/17 at 09:00 Miscellaneous Information (*Rx Drug Level Order Reminder*) VANCOMYCIN TROUGH ON @ 12PM ONCE ONCE XX ; Start 06/06/17 at 12:00; Stop 06/06/17 at 12:01 Enoxaparin Sodium (Lovenox) 40 mg DAILY SC Last administered on 06/05/17 14: 25; Admin Dose 40 MG; Start 06/05/17 at 14:00 Assessment/Plan Chief Complaint/Hosp Course Atypical chest pain appeared to be non-anginal. we will rule out for myocardial infarction Fever lower extremity cellulitis Abnormal EKG with left bundle branch block History of heart blocks at a permanent pacemaker with no evidence of any malfunction currently. Mild hypertension under good control Recommendation: Antibiotic management as per internal medicine. Workup and treatment of the fever as per internal medicine. Aspirin was initiated. Beta-damaris was initiated. Serial cardiac enzymes showed no evidence of myocardial infarction. Echocardiogram is reviewed that showed normal ejection fraction Okay to DC telemetry from cardiac standpoint. We will do low pacemaker interrogation as an outpatient. Thank you for his referral. I will continue to follow along with you. RAMONA NARAYANAN MD [facility] Problems: RAMONA NARAYANAN MD Jun 06, 2017 07:51
[2017-06-06 08:15] LABS: CREATININE 1.23 mg/dl (0.61-1.24); MAGNESIUM 1.7 mg/dl (1.7-2.5); PHOSPHORUS 3.4 mg/dl (2.5-4.9); POTASSIUM 4.1 mmol/L (3.5-5.1)
[2017-06-06] MEDS: FENOFIBRATE 145 MG TAB PO SCH ×2 (09:00→09:26)
[2017-06-06] MEDS: CEFEPIME 1GM/50 ML (PMX) 50 ML IVPB SCH (09:24)
[2017-06-06] MEDS: METOPROLOL 25 MG TAB PO SCH (09:25)
[2017-06-06] MEDS: CHLORTHALIDONE 25 MG TAB PO SCH (09:26)
[2017-06-06] MEDS: BENAZEPRIL 20 MG TAB PO SCH (09:26)
[2017-06-06] MEDS: ASPIRIN (EC) 81 MG TAB PO SCH (09:26)
[2017-06-06] MEDS: AMLODIPINE 10 MG TAB PO SCH (09:26)
[2017-06-06] MEDS: ENOXAPARIN 40 MG/0.4 ML SYG SC SCH (09:37)
[2017-06-06] MEDS: VANCOMYCIN 1.5 GM in DEXTROSE 5% 500 ML IVPB SCH (13:00)
--- NOTE | 2017-06-06 13:07 | PDOCDIS ---
Discharge Instructions DIAGNOSIS Discharge Diagnosis Cellulitis of lower extremity. CONDITION Patient Condition: Stable HOME CARE INSTRUCTIONS: Diet Instructions: Low Fat /Cholesterol FOLLOW UP/APPOINTMENTS Follow-up Plan Tyson Gunn MD Specialty: Internal Medicine Office Address: [address] [place] [address] [place], [place] [id number] Office OTHER ORDERS: Other Orders: 1. Take medications as per prescription. 2. Resume activities as tolerated. Elevate your lower extremities while at rest. 3. Follow-up with your primary care physician in 1 week. If you do not have a primary care physician, please call Dr. Tyson Gunn's office. Have your primary care physician arrange for outpatient cardiology follow-up within the next month. 4. Take a low-cholesterol diet. SHANE HASTINGS NP Jun 06, 2017 13:07
[2017-06-06] MEDS ORDERED: FENO145T19 PO (13:11)
[2017-06-06] MEDS ORDERED: DOXY100T20 PO (13:11)
[2017-06-06] MEDS ORDERED: METO-448 PO (13:11)
--- NOTE | 2017-06-06 13:17 | DS ---
Date/Time of Note Date/Time of Note DATE: 06/06/17 TIME: 13:17 Discharge Summary Admission/Discharge Info Admit Date/Time Jun 03, 2017 at 21:25 Discharge Date/Time Discharge Diagnosis 1. Chest pain. ACS ruled out. 2. Sepsis secondary to lower extremity cellulitis. 3. History of third degree heart block. Status post permanent pacemaker placement. 4. Essential hypertension. 5. Dyslipidemia. 6. Acute kidney injury. 7. History of shingles on the left eye. Patient Condition: Stable Consults 1. Yair Leyva MD, Cardiology. 2. Jr Tran MD, Infectious Diseases. Procedures Bilateral Upper Extremity Venous Doppler Study IMPRESSION: 1. No evidence of deep vein thrombosis involving either lower extremity. 2D Echocardiogram Conclusions 1. Normal left ventricular systolic function. Normal left ventricular cavity size. Moderate concentric left ventricular hypertrophy. Ejection fraction is visually estimated at 65 %. Tissue Doppler/Mitral Doppler indices are consistent with impaired relaxation (Stage I diastolic dysfunction). 2. Mild mitral leaflet calcification. Mild mitral annular calcification. Trace mitral regurgitation. 3. No significant aortic stenosis. Aortic cusps appear mildly calcified. Mild aortic valve regurgitation. 4. Normal appearance of the tricuspid valve. Estimated peak PA systolic pressure 35 mmHg. There is mild tricuspid regurgitation. Hx of Present Illness This is a 67-year-old male with past medical history of essential hypertension, complete heart block status post permanent pacemaker, and shingles who came to the emergency room with chief complaint of intermittent left-sided chest pain/ pressure with associated radiation of pain to the left arm that has been going on for the past few months. The patient also noticed bilateral lower extremity edema with redness. The patient also verbalized febrile episodes at home. The patient denied any cough or URI symptoms. The patient denied any dysuria. Upon presentation to the emergency room, the patient had a temperature of 101 F. The patient was noticed to have minimal leukocytosis. The patient also had evidence of acute kidney injury with a BUN and creatinine of 28 and 1.26 respectively. Provided the patient's history of present illness, his comorbidities, and the diagnostic findings, a clinical decision was made to admit the patient inpatient setting to have him further evaluated. Hospital Course The patient was admitted to inpatient setting. A cardiology consult was obtained. The patient was ruled out for any underlying acute coronary syndrome. The patient's 2D echocardiogram showed preserved left ventricular ejection fraction. Cardiology recommended outpatient interrogation of the patient's pacemaker. The patient was maintained on aspirin for any underlying possible ACS. However, aspirin will be discontinued since the patient has no evidence of any ACS. The patient has underlying essential hypertension. The patient was maintained on antihypertensives and antihypertensives were adjusted to obtain optimal blood pressure control. The patient also has underlying dyslipidemia. The patient was maintained on a low cholesterol diet. The patient was noticed to have hypertriglyceridemia with a triglyceride level of 175, not significantly high enough to start the patient on any fibrates. The patient had bilateral lower extremity edema. The patient underwent a bilateral lower extremity venous Doppler study that was negative for any DVT. The patient had evidence of lower extremity cellulitis, specifically in the left lower extremity. The patient was maintained on empiric antibiotics. The patient's marie cultures remained negative. The patient had underlying sepsis secondary to underlying cellulitis. The patient had no evidence of any septic shock. The patient was being followed by infectious diseases and will be discharged home on antibiotics as per infectious diseases. The patient has history of third-degree heart block and he is status post pacemaker placement. The patient was evaluated by cardiology and recommended pacemaker interrogation as outpatient. The patient had some evidence of acute kidney injury upon presentation to the ER. The patient's BERNY resolved over the course of the patient's hospital stay. The etiology of the patient's BERNY remains unclear. It could be most probably from hemodynamics. The patient has a history of left ocular shingles. The patient had no evidence of any active shingles during this visit. The patient had a stable hospital course. The patient was cleared by consultants to be discharged home. Discharge Instructions 1. Take medications as per prescription. 2. Resume activities as tolerated. Elevate your lower extremities while at rest. 3. Follow-up with your primary care physician in 1 week. If you do not have a primary care physician, please call Dr. Tyson Gunn's office. Have your primary care physician arrange for outpatient cardiology follow-up within the next month. 4. Take a low-cholesterol diet. The patient verbalized understanding of his discharge instructions. At this time I would like to thank all the consultants for seeing the patient and providing clinical recommendations. Case discussed with Dr. Abdalla. Home Meds Active Scripts Doxycycline Hyclate* (Doxycycline Hyclate*) 100 Mg Tablet., 100 MG PO BID for 7 Days, #14 TAB Prov:SHANE HASTINGS GRANTS ASSISTANT 06/08/17 Metoprolol Tartrate* (Lopressor*) 25 Mg Tab, 25 MG PO BID, #60 TAB Prov:SHANE HASTINGS GRANTS ASSISTANT 06/06/17 Benazepril Hcl* (Lotensin*) 20 Mg Tablet, 20 MG PO DAILY, #30 TAB Prov:GRACE ESQUIVEL MD 02/03/17 Aspirin* (Aspirin* EC) 81 Mg Tablet.dr, 81 MG PO DAILY, #100 Prov:SANTOSH GUNN MD 11/23/16 Reported Medications Amlodipine Besylate* (Amlodipine Besylate*) 10 Mg Tablet, 10 MG PO DAILY, #30 TAB 10/06/16 Discontinued Reported Medications Ibuprofen* (Ibuprofen*) 600 Mg Tablet, 600 MG PO BEFORE BREAKFAST , TAB 06/04/17 Dextran 70/Hypromellose/Pf (ARTIFICIAL TEARS DROPS) 1 Each Droperette, 1 EACH OP QHS for DRY EYES 06/03/17 Chlorthalidone* (Chlorthalidone*) 25 Mg Tablet, 25 MG PO DAILY, TAB 06/03/17 [Vit D2 ] No Conflict Check, 1.25 PO ONCE A WEEK 06/03/17 [Ketoifen Fum 0.025% ] No Conflict Check, 1 OPHTHALMIC BID Y for EYE IRRITATION 06/03/17 Acetaminophen* (Acetaminophen*) 500 MG Extra Strength Tablet, 500 MG PO Q4H Y for PAIN AND OR ELEVATED TEMP, TAB 10/06/16 Prednisolone Acetate* (Pred Forte*) 5 Ml Susp, 1 DROP BOTH EYES QID Y for Q7D, EA 10/06/16 Ibuprofen (Ibuprofen) 50 Mg/1.25 Ml Drops.susp, 600 MG PO AFTER BREAKFAST for PAIN, ML 06/03/17 Discontinued Scripts Hydrochlorothiazide* (Hydrochlorothiazide*) 25 Mg Tab, 25 MG PO DAILY, #30 TAB Prov:GRACE ESQUIVEL MD 02/03/17 Acetaminophen (MAPAP) 325 Mg Tablet, 650 MG PO Q6H Y for NON-CARDIAC PAIN LEVEL (1-3), #30 TAB Prov:SANTOSH GUNN MD 11/23/16 Cephalexin* (Cephalexin*) 500 Mg Capsule, 500 MG PO TID, #15 CAP Prov:SANTOSH GUNN MD 11/23/16 Acyclovir* (Zovirax*) 800 Mg Tablet, 800 MG PO 5 TIMES DAILY for 7 Days, TAB Prov:HÉCTOR FAYE MD 10/06/16 Hydrocodone/Acetaminophen ([place] 10-325 Tablet) 1 Each Tablet, 1 TAB PO Q6H Y for PAIN, #20 TAB Prov:HÉCTOR FAYE MD 10/06/16 Follow-up Plan Tyson Gunn MD Specialty: Internal Medicine Office Address: [address] [place] [address] Office Primary Care Provider Care Physician No Primary Time spent on discharge: 40 mins. Pending Labs Laboratory Tests Test 06/06/17 07:09 06/06/17 12:18 White Blood Count 6.910^3/ul (4.8-10.8) Red Blood Count 5.7010^6/ul (4.70-6.10) Hemoglobin 16.5g/dl (14.0-18.0) Hematocrit 46.7% (42.0-52.0) Mean Corpuscular Volume 81.9fl (82.0-101.0) Mean Corpuscular Hemoglobin 28.9pg (29.0-33.0) Mean Corpuscular Hemoglobin Concent 35.3g/dl (32.0-37.0) Red Cell Distribution Width 13.2% (11.5-14.5) Platelet Count 72630^3/UL (140-415) Mean Platelet Volume 9.4fl (7.4-10.4) Neutrophils % 36.4% (39.0-77.0) Lymphocytes % 37.5% (15.0-51.0) Monocytes % 9.4% (0.0-11.0) Eosinophils % 15.7% (0.0-7.0) Basophils % 0.4% (0.0-2.0) Nucleated Red Blood Cells % 0.0/100WBC (0.0-0.0) Neutrophils # 2.510^3/ul (1.6-7.5) Lymphocytes # 2.610^3/ul (0.8-2.9) Monocytes # 0.710^3/ul (0.3-0.9) Eosinophils # 1.110^3/ul (0.0-0.5) Basophils # 0.010^3/ul (0.0-0.1) Nucleated Red Blood Cells # 0.010^3/ul (0.0-0.0) Sodium Level 139mmol/L (135-144) Potassium Level 4.1mmol/L (3.5-5.1) Chloride Level 100mmol/L (97-110) Carbon Dioxide Level 32mmol/L (21-31) Anion Gap 11 (8-16) Blood Urea Nitrogen 19mg/dl (7-20) Creatinine 1.23mg/dl (0.61-1.24) Glucose Level 93mg/dl (70-220) Calcium Level 9.0mg/dl (8.4-10.2) Phosphorus Level 3.4mg/dl (2.5-4.9) Magnesium Level 1.7mg/dl (1.7-2.5) Vancomycin Level Trough 12.0ug/ml (10.0-20.0) SHANE HASTINGS NP Jun 06, 2017 13:17
--- NOTE | 2017-06-06 20:03 | CONS ---
Date/Time of Note Date/Time of Note DATE: 06/06/17 TIME: 20:01 Assessment/Plan Assessment/Plan Chief Complaint/Hosp Course Time 1400 SUBJECTIVE: No acute changes. The patient is awake, looks comfortable, no fevers overnight. MICROBIOLOGY: Blood, urine culture and influenza swab negative. ANTIMICROBIALS: 1. Vancomycin. 2. Cefepime. DIAGNOSTICS: Chest x-ray on admission revealed unremarkable chest radiograph with atherosclerosis and permanent pacemaker. PHYSICAL EXAMINATION: GENERAL: Well-developed, elderly man in no distress. HEENT: Head atraumatic, normocephalic. Sclerae anicteric. Buccal mucosa dry. NECK: Supple. CHEST: Rise symmetrical. Breath sounds clear. HEART: S1, S2. ABDOMEN: Soft, bowel tones present. EXTREMITIES: Bilateral lower extremity erythema improved ASSESSMENT: 1. Systemic inflammatory response syndrome with fevers on admission and leukocytosis secondary to #2. 2. Bilateral lower extremity cellulitis. 3. Chest pain. 4. Acute kidney injury. 5. Hypertension. PLAN: Improving, continue present care, anticipate dc on oral Bactrim or Doxycycline for 7 more days [facility] staff Problems: Consultation Date/Type/Reason Admit Date/Time Jun 03, 2017 at 21:25 Initial Consult Date 06/04/17 Type of Consultation: ID Referring Provider: ZORA HACKETT MD Exam/Review of Systems Vital Signs Vitals Vital Signs Date Time Temp Pulse Resp B/P Pulse Ox O2 Delivery O2 Flow Rate FiO2 06/06/17 16:03 98.0 67 17 157/73 97 06/06/17 13:00 Room Air Intake and Output 06/05/17 06/05/17 06/06/17 15:00 23:00 07:00 Intake Total 1050 ml 550 ml Balance 1050 ml 550 ml Results Result Diagram: 06/06/17 0709 06/06/17 0709 Results 24 hrs Laboratory Tests Test 06/06/17 07:09 06/06/17 12:18 White Blood Count 6.9 Red Blood Count 5.70 Hemoglobin 16.5 Hematocrit 46.7 Mean Corpuscular Volume 81.9 L Mean Corpuscular Hemoglobin 28.9 L Mean Corpuscular Hemoglobin Concent 35.3 Red Cell Distribution Width 13.2 Platelet Count 148 Mean Platelet Volume 9.4 Neutrophils % 36.4 L Lymphocytes % 37.5 Monocytes % 9.4 Eosinophils % 15.7 H Basophils % 0.4 Nucleated Red Blood Cells % 0.0 Neutrophils # 2.5 Lymphocytes # 2.6 Monocytes # 0.7 Eosinophils # 1.1 H Basophils # 0.0 Nucleated Red Blood Cells # 0.0 Sodium Level 139 Potassium Level 4.1 Chloride Level 100 Carbon Dioxide Level 32 H Anion Gap 11 Blood Urea Nitrogen 19 Creatinine 1.23 Glucose Level 93 Calcium Level 9.0 Phosphorus Level 3.4 Magnesium Level 1.7 Vancomycin Level Trough 12.0 MUNDO ALVAREZ NP Jun 06, 2017 20:03
--- NOTE | 2017-06-08 17:27 | QN ---
Documentation Comment Received a call from the telemetry brokerage branch manager stating that the patient did not receive his medications upon discharge. The patient's [facility] pharmacy was called and prescriptions for doxycycline and Lopressor was given. The patient was called and informed about the prescription was already called in. Case discussed with Dr. Abdalla. SHANE HASTINGS NP Jun 08, 2017 17:27
[2017-06-08] MEDS ORDERED: DOXY100T20 PO (17:28)
[2017-06-10] MEDS ORDERED: ERGOCALCIFEROL 50,000 UNIT CAP PO SCH (09:00)
== END 2017-06-06 16:32 | disposition home or self-care (01) | DRG 872 ==
LOC: E/R 12:59 → PP2 21:25 → MS4 06-04 12:10
PROVIDERS: ADMIT Internal Medicine; ATTEND Internal Medicine
DX: A41.9 Sepsis, unspecified organism (principal); N17.9 Acute kidney failure, unspecified; L03.115 Cellulitis of right lower limb; L03.116 Cellulitis of left lower limb; I10 Essential (primary) hypertension; R07.89 Other chest pain; E78.5 Hyperlipidemia, unspecified; Z95.0 Presence of cardiac pacemaker
CPT/HCPCS: 36415; 71010; 80048; 80053; 80061; 80202; 81001; 82550; 82553; 83036; 83605; 83690; 83735; 83880; 84100; 84484; 85025; 85610; 85730; 87040; 87086; 87400; 93005; 93306; 93970; 96365; 96366; 96375; J0692; J1650; J3370; J7030; J7040; J7060

== ENCOUNTER 2017-07-20 01:56 | Inpatient (IN) | END 2017-07-20 20:24 | disposition home or self-care (01) | DRG 313 ==

== ENCOUNTER 2017-09-23 11:43 | Emergency (ER) | END 2017-09-23 16:21 | disposition home or self-care (01) ==

== ENCOUNTER 2017-09-25 20:22 | Inpatient (IN) | END 2017-09-27 16:43 | disposition home or self-care (01) | DRG 872 ==

== ENCOUNTER 2018-05-18 13:38 | Emergency (ER) | END 2018-05-18 15:26 | disposition home or self-care (01) ==